=== PATIENT | female | born 1965 | race Caucasian/White ===

== ENCOUNTER 2020-09-14 09:56 | Outpatient (REF) | payer BC, SELFPAY ==
--- NOTE | ~2020-09-14 | MM_ITS ---
EXAMINATION: MM SCREENING DIGITAL BREAST TOMOSYNTHESIS, BILATERAL CLINICAL INFORMATION: Screening. Asymptomatic. The lifetime risk of breast cancer based on the Tyrer-Cuzick Model is 13%. COMPARISON: Mammography: 08/12/2019, 06/21/2018, 06/13/2017, 05/30/2016 TECHNIQUE: Digital breast tomosynthesis is performed in both the craniocaudal and mediolateral oblique views along with computer-aided detection (CAD). Synthesized 2D images are generated from the tomosynthesis. FINDINGS: There are scattered areas of fibroglandular density (ACR BI-RADS breast composition Category b). Right CC view has focal increased parenchymal attenuation with suggestion of possible radiating lines mid medial aspect 9 cm from nipple. There is no correlate on MLO view and this could represent summation artifact. Patient will be recalled for additional imaging. The left breast shows no significant change from prior studies. There is no developing density or interval mass or architectural abnormality. Fine fibronodular parenchymal pattern is similar to prior exams. Neither breast shows abnormal calcifications. Skin contours are smooth. MM/MM tomosynthesis screening BI IMPRESSION: 1. Right: Question of architectural changes mid inner right breast limited to CC view. 2. Left: No mammographic evidence of malignancy. ASSESSMENT: BI-RADS 0: Incomplete - Need Additional Imaging Evaluation RECOMMENDATION: 1. Additional views of the right breast (3D rolled CC x 2; 3D spot CC x2; 3D ML). 2. Targeted ultrasound if warranted after review of the additional views. 3. Radiology department staff will contact the patient for additional imaging. This patient's information was entered into a reminder system with a target due date for their next mammogram.
== END 2020-09-14 09:57 | disposition home or self-care (01) ==
LOC: HO.MAMMO 09:56
PROVIDERS: PCP Registered Nurse; Visit Provider Registered Nurse
DX: Z12.31 Encounter for screening mammogram for malignant neoplasm of breast (principal)
CPT/HCPCS: 77063; 77067

== ENCOUNTER 2020-09-27 08:28 | Outpatient (REF) | payer BC, SELFPAY ==
--- NOTE | ~2020-09-27 | MM_ITS ---
EXAMINATION: MM DIAGNOSTIC DIGITAL BREAST TOMOSYNTHESIS, RIGHT CLINICAL INFORMATION: Recall from screening for question of architectural changes mid inner right breast on CC view. TC score 13%. COMPARISON: Mammography: 09/14/2020, 08/12/2019, 06/21/2018, 06/13/2017, 05/30/2016 TECHNIQUE: Digital breast tomosynthesis is performed. 2D images are generated from the tomosynthesis. The following views are obtained: 3-D rolled CC x2, 3-D ML, 3-D spot CC. FINDINGS: There are scattered areas of fibroglandular density (ACR BI-RADS breast composition Category b). The additional views show no architectural abnormality. There is no developing density. Fibroglandular densities appears similar to prior exams. Results are discussed with the patient at time of visit. MM/MM tomosynthesis added views R IMPRESSION: Additional views show no significant changes from prior studies. No architectural abnormality. ASSESSMENT: BI-RADS 2: Benign RECOMMENDATION: Routine annual mammography screening. This patient's information was entered into a reminder system with a target due date for their next mammogram.
== END 2020-09-27 08:29 | disposition home or self-care (01) ==
LOC: HO.MAMMO 08:28
PROVIDERS: Visit Provider Registered Nurse
DX: R92.8 Other abnormal and inconclusive findings on diagnostic imaging of breast (principal)
CPT/HCPCS: 77061; 77065

== ENCOUNTER 2021-06-09 14:21 | Outpatient (REF) | payer BC, SELFPAY ==
--- NOTE | ~2021-06-09 | US_ITS ---
EXAMINATION: US RETROPERITONEAL LIMITED (RENAL ONLY) CLINICAL INFORMATION: Calculus of kidney. COMPARISON: CT abdomen and pelvis with contrast 09/17/2019. US retroperitoneal limited (renal only) 07/22/2019 and 12/16/2018. TECHNIQUE: Real-time imaging of the kidneys. FINDINGS: RIGHT KIDNEY: 12.0 x 4.58 x 4.60 cm (SAG x AP x TRV). The kidney is normal in size, contour, and echogenicity. Renal cortical thickness is normal. No calculi or focal parenchymal lesions. No hydronephrosis. LEFT KIDNEY: 13.0 x 4.61 x 5.15 cm (SAG x AP x TRV). The kidney is normal in size, contour, and echogenicity. Renal cortical thickness is normal. No calculi or focal parenchymal lesions. No hydronephrosis. US/US renal BI IMPRESSION: Unremarkable sonographic imaging of the kidneys. Specifically, no renal calculi or hydronephrosis bilaterally.
== END 2021-06-09 14:22 | disposition home or self-care (01) ==
LOC: HO.HMGCX 14:21
PROVIDERS: Visit Provider Urology
DX: N20.0 Calculus of kidney (principal)
CPT/HCPCS: 76775

== ENCOUNTER 2021-06-15 16:06 | Outpatient (REF) | payer BC, SELFPAY ==
[2021-06-18 16:17] LABS: TS Negative Control Passed; TS Panel A 0; TS Panel B 0; TS Positive Control Passed; TSpotTB Negative (SeeBelow)
== END 2021-06-15 16:07 | disposition home or self-care (01) ==
LOC: HO.LNP 16:06
PROVIDERS: Visit Provider Physician Assistant
DX: Z02.1 Encounter for pre-employment examination (principal); Z11.1 Encounter for screening for respiratory tuberculosis
CPT/HCPCS: 86481

== ENCOUNTER → 2021-06-16 15:32 | Outpatient (BNVA) | payer BC, SELFPAY | PROVIDERS: PCP Registered Nurse; Visit Provider Urology | DX: Z13.89 Encounter for screening for other disorder (principal) ==

== ENCOUNTER 2021-10-02 07:42 | Outpatient (REF) | payer BC, SELFPAY ==
--- NOTE | ~2021-10-02 | MM_ITS ---
EXAMINATION: MM SCREENING DIGITAL BREAST TOMOSYNTHESIS, BILATERAL CLINICAL INFORMATION: Screening. Asymptomatic. The lifetime risk of breast cancer based on the Tyrer-Cuzick Model is 12%. COMPARISON: Mammography: 09/27/2020, 09/14/2020, 08/12/2019, 06/21/2018 TECHNIQUE: Digital breast tomosynthesis is performed in both the craniocaudal and mediolateral oblique views along with computer-aided detection (CAD). Synthesized 2D images are generated from the tomosynthesis. FINDINGS: There are scattered areas of fibroglandular density (ACR BI-RADS breast composition Category b). There are no significant masses, abnormal calcifications, or other abnormalities. Parenchymal pattern is similar to prior studies. There is no developing density or architectural abnormality. The axilla and skin contours are unremarkable. No significant changes. MM/MM tomosynthesis screening BI IMPRESSION: No mammographic evidence of malignancy. ASSESSMENT: BI-RADS 1: Negative RECOMMENDATION: Routine annual mammography screening. This patient's information was entered into a reminder system with a target due date for their next mammogram.
== END 2021-10-02 07:43 | disposition home or self-care (01) ==
LOC: HO.MAMMO 07:42
PROVIDERS: Visit Provider Registered Nurse
DX: Z12.31 Encounter for screening mammogram for malignant neoplasm of breast (principal)
CPT/HCPCS: 77063; 77067

== ENCOUNTER 2022-11-09 08:23 | Outpatient (REF) | payer BC, SELFPAY | END 2022-11-09 08:24 | disposition home or self-care (01) | LOC: HO.MAMMO 08:23 | PROVIDERS: PCP Registered Nurse; Visit Provider Registered Nurse | DX: Z12.31 Encounter for screening mammogram for malignant neoplasm of breast (principal) | CPT/HCPCS: 77063; 77067 ==

== ENCOUNTER → 2022-11-09 08:30 | Outpatient (BNV) | payer BC, SELFPAY | PROVIDERS: PCP Registered Nurse; Visit Provider Radiology Diagnostic Radiology | DX: Z12.31 Encounter for screening mammogram for malignant neoplasm of breast (principal) | CPT/HCPCS: 77063; 77067 ==

== ENCOUNTER 2022-12-22 13:55 | Emergency (ER) | payer BC, SELFPAY ==
--- NOTE | ~2022-12-22 | XR_ITS ---
EXAMINATION: XR CHEST CLINICAL INFORMATION: Chest pain. COMPARISON: 02/24/2013. TECHNIQUE: 2 views of the chest were obtained. FINDINGS: The cardiomediastinal silhouette is normal. There is no focal lung consolidation or pleural effusion. The bony structures and soft tissues are unremarkable. XR/XR chest 2V IMPRESSION: No active cardiopulmonary disease.
--- NOTE | 2022-12-22 13:58 | ECG_ITS ---
Test Reason : CHEST PAIN Blood Pressure : / mmHG Vent. Rate : 069 BPM Atrial Rate : 069 BPM P-R Int : 132 ms QRS Dur : 098 ms QT Int : 410 ms P-R-T Axes : 007 -04 015 degrees QTc Int : 439 ms Normal sinus rhythm Moderate voltage criteria for LVH, may be normal variant ( R in aVL , [place] product ) Borderline ECG When compared with ECG of 24-FEB-2013 08:59, No significant change was found Referred By: Generic ED Physician Electronically Signed By:PETER JONES MD
--- NOTE | 2022-12-22 15:03 | ED.CHESTPAIN ---
HPI - Chest Pain General Chief Complaint: General Medical Stated Complaint: chest pain nausea dizzy Time Seen by Provider: 12/22/22 16:07 Related Data Home Medications Medication Instructions Recorded Confirmed doxepin 10 mg capsule 10 mg PO BEDTIME 06/16/21 estradiol 0.05 mg-norethindrone 0 patch transdermal 06/16/21 0.14 mg/24 hr semiwkly transderm patch (CombiPatch) levothyroxine 75 mcg tablet 75 mcg PO DAILY 06/16/21 (Synthroid) Previous Rx's Medication Instructions Recorded omeprazole 20 mg capsule,delayed 20 mg PO DAILY 90 days #90 caps 11/30/19 release levothyroxine 125 mcg tablet 62.5 mcg (1/2 x 125 mcg) PO DAILY 05/09/20 90 days #45 tabs Allergies Allergy/AdvReac Type Severity Reaction Status Date / Time No Known Allergies Allergy Verified 06/16/21 15:33 [No Known Allergies*] [facility] Past Medical History Medical History Calculus of kidney Surgical History History of laparoscopic cholecystectomy History of repair of rectocele Family History Family History Father Pacemaker Mother Unknown family medical history Maternal Grandfather CHF (congestive heart failure) CVD (cardiovascular disease) Maternal Grandmother CVD (cardiovascular disease) CHF (congestive heart failure) Brother No problems noted. Sister No problems noted. Son No problems noted. Son No problems noted. Son No problems noted. Social History Social History Smoked in Last 30 Days: No Use of substances other than those prescribed or required for medical reasons: No Advance Directives: No Advance Directives Information Provided: No Physical Exam Vital Signs: Vital Signs: Last Vital Signs Temp 98.1 F 12/22/22 16:52 Pulse 62 12/22/22 16:52 Resp 12 12/22/22 16:52 BP 161/85 H 12/22/22 16:52 Pulse Ox 99 12/22/22 16:52 O2 Del Method Room Air 12/22/22 16:52 BMI result Body Mass Index 34.6 Course Course Course Narrative: This is an RME: Additional HPI, ROS, PE not included below will be deferred to primary provider. Patient is a 57-year-old female who presents emergency department for evaluation of intermittent chest pain, left anterior radiating into the shoulder and upper back, dizziness described as being off balance, nausea without vomiting, fatigue, bilateral legs feel heavy. Endorses having COVID-19 infection 1 month ago, cough finally subsided 1 week ago. Plan: labs, EKG, CXR Medical Decision Making Lab Data 12/22/22 15:37 12/22/22 15:37 Labs: Lab Results 12/22/22 12/22/22 Range/Units 15:37 15:52 WBC 5.5 (4.8-10.8) X10*3/uL RBC 4.85 (4.20-5.50) X10*6/uL Hgb 14.2 (12.0-16.0) g/dl Hct 42.2 (37.0-47.0) % MCV 87.0 (80.0-98.0) fL MCH 29.3 (27.0-33.0) pg MCHC 33.6 (31.0-35.0) g/dl RDW 12.7 (11.0-16.0) % Plt Count 163 (160-400) X10*3/uL MPV 11.5 (9.4-12.3) fL Immature Gran % (Auto) 0.2 (0.0-0.4) % Neut % (Auto) 69.2 (45-73) % Lymph % (Auto) 18.4 L (20-40) % Bledsoe % (Auto) 9.6 (2-11) % Eos % (Auto) 2.1 (0-4) % Baso % (Auto) 0.5 (0-2) % Lymph # (Auto) 1.0 L (1.2-4.9) X10*3/uL Bledsoe # (Auto) 0.5 (0.1-1.2) X10*3/uL Eos # (Auto) 0.1 (0.0-0.4) X10*3/uL Baso # (Auto) 0.0 (0.0-0.2) X10*3/uL Abs Immat Gran (auto) 0.01 (0.00-0.03) X10*3/uL Absolute Neuts (auto) 3.9 (2.0-8.3) x10*3/uL Absolute Nucleated RBC 0.000 (0.0-0.012) X10*3/uL Nucleated RBC % (auto) 0.0 (0.0-0.2) /100WBC Smear Tech's Comments VERIFIED PT 10.8 L (11.1-13.3) SEC INR 0.9 (0.9-1.1) Sodium 139 (135-145) mmol/L Potassium 4.5 (3.3-5.1) mmol/L Chloride 108 (96-108) mmol/L Carbon Dioxide 21 L (22-29) mmol/L Anion Gap 15 (12-20) BUN 15 (9-16) mg/dL Creatinine 0.76 (0.5-1.4) mg/dL Estim Creat Clear Calc 104.6 Estimated GFR > 60 Random Glucose 100 (60-115) mg/dL Calcium 9.8 (8.4-10.2) mg/dL Magnesium 2.2 (1.6-2.6) mg/dL Total Bilirubin 0.5 (0.0-1.0) mg/dL AST 25 (5-31) U/L ALT 24 (0-31) U/L Alkaline Phosphatase 51 (39-117) U/L Troponin I High Sens < 2.7 (<3.5-17.0) ng/L Total Protein 7.8 (6.5-8.0) g/dL Albumin 4.4 (3.5-5.0) g/dL Lipase 34 (8-78) U/L Urine Color Yellow Urine Appearance Clear Urine pH 5.5 (5.0-9.0) Ur Specific [place] 1.010 (1.005-1.025) Urine Protein Negative (Neg-Trace) mg/dL Urine Glucose (UA) Negative (Negative) mg/dL Urine Ketones Negative (Negative) mg/dL Urine Blood Negative (Negative) Urine Nitrite Negative (Negative) Ur Leukocyte Esterase Negative (Negative) Urine RBC 0-2 (0-2) /HPF Urine WBC 0-5 (0-5) /HPF Ur Squamous Epith Cells 0-2 (0-2) /HPF Urine Bacteria Trace (None Seen) Hyaline Casts 0-2 (0-2) /LPF Urine Test NEGATIVE (NEGATIVE) Discharge Plan Discharge Prescriptions: No Action omeprazole 20 mg capsule,delayed release(DR/EC) 20 mg PO DAILY 90 Days Qty: 90 3RF levothyroxine 125 mcg tablet 62.5 mcg PO DAILY 90 Days Qty: 45 3RF doxepin 10 mg capsule 10 mg PO BEDTIME levothyroxine [Synthroid] 75 mcg tablet 75 mcg PO DAILY CombiPatch 0.05-0.14 mg/24 hr patch semiweekly 0 patch transdermal
[2022-12-22 15:04] VITALS: BP 177/93; PULSE 65; RESP 16; TEMP 36.3; O2SAT 98; BMI 34.6
[2022-12-22 15:45] LABS: Basophils Percent Auto 0.5 % (0-2); Eosinophils Absolute Auto 0.1 X10*3/uL (0.0-0.4); Eosinophils Percent Auto 2.1 % (0-4); Hematocrit 42.2 % (37.0-47.0); Hemoglobin 14.2 g/dl (12.0-16.0); Imm Gran Abs Auto 0.01 X10*3/uL (0.00-0.03); Imm Gran Pct Auto 0.2 % (0.0-0.4); Lymphocytes Percent Auto 18.4 % (20-40); MANUAL DIFF FLAG SCAN; Mean Corpuscular HGB Conc 33.6 g/dl (31.0-35.0); Mean Corpuscular Hemoglobin 29.3 pg (27.0-33.0); Mean Platelet Volume 11.5 fL (9.4-12.3); Monocytes Absolute Auto 0.5 X10*3/uL (0.1-1.2); Monocytes Percent Auto 9.6 % (2-11); Neutrophils Absolute Auto 3.9 x10*3/uL (2.0-8.3); Neutrophils Percent Auto 69.2 % (45-73); PLT CLUMP 1; Red Blood Count 4.85 X10*6/uL (4.20-5.50); Red Cell Distribution Width 12.7 % (11.0-16.0); SCAN SMEAR FLAG 1
[2022-12-22 15:49] LABS: White Blood Count 5.5 X10*3/uL (4.8-10.8)
[2022-12-22 15:52] LABS: INTERNATIONAL NORM RATIO 0.9 (0.9-1.1); Prothrombin Time 10.8 SEC (11.1-13.3)
--- OUTSIDE RECORDS SUMMARY | 2022-12-22 15:54 | XMS_ITS | Continuity of Care Document ---
Author Name Unknown Organization [facility] Address [address] [place] [address] [address], [address] [place] [address]- Care Team Providers Care County Historian Name Role Phone Sanchez RICHTER, Genet Frias Primary Care Physician [facility] Date[facility]s): 01/29/22 - 02/28/22 [facility] [address] [place] [address] Drive, [address] [place], [place] [address] Allergies, Adverse Reactions, Alerts Substance Reaction Severity Status lisinopril severe chest pain, nausea, diarrhea Active Immunizations Given and Recorded Vaccine Date Status Refusal Reason influenza virus vaccine, inactivated 1, 2 12/09/14 Recorded influenza virus vaccine, inactivated 3 12/14/13 Gi ileana influenza virus vaccine, inactivated 4 11/26/11 Gi ileana influenza virus vaccine, inactivated 12/19/07 Give n diphtheria/tetanus/pertussis, acel(DTaP) 08/25/13 Given Influenza Virus Vaccine (oldterm) 5 12/06/10 Given Influenza Virus Vaccine (oldterm) 6 01/28/07 Given Tet/Diphth/Acel, Pertussis (oldterm) 04/16/08 Give n tetanus-diphtheria toxoids (Td) 7 12/04/01 Given 1Location History: work 2Result Comment: [03/01/2015] got flu shot at work, [facility] 3Result Comment: [01/13/2014] Received at work 4Admin Note: [employer] [facility] [place] 5Admin Note: had at school 6Admin Note: given in clinic 7Admin Note: historical data Medications Calcium 600 +D By Mouth, 0 Refills, Maintenance, 11/02/14 9:39:18 Start Date: 11/02/14 Status: Ordered cloNIDine 0.1 mg oral tablet 0.1 mg, 1, tablet, By Mouth, Daily, ~noon to replace propranolol, # 30 tablet, Refills 1, Tot. Refills 1, Maintenance, 01/25/22 11:39:00 EST, Route to Pharmacy Electronically, [facility], Partial fill upon patient request if the prescr... Start Date: 01/25/22 Status: Ordered levothyroxine 0.05 mg oral tablet 1 tablet = 50 mcg, By Mouth, Daily, # 90 tablet, 3 Refills, Maintenance, 07/09/14 9:59:29, Tablet, 1 tablet By Mouth Daily,x90 days Start Date: 07/09/14 Stop Date: 07/04/15 Status: Ordered Multivitamin By Mouth, Daily, 0 Refills, Maintenance, 11/02/14 9:38:25 Start Date: 11/02/14 Status: Ordered Prilosec 20 mg oral enteric coated capsule 1 capsule, By Mouth, Daily, # 30 capsule, 0 Refills, Maintenance, EC Capsule Start Date: 12/16/10 Status: Ordered propranolol 20 mg oral tablet 20 mg, 1, tablet, By Mouth, 2 times a day, # 60 tablet, Refills 1, Tot. Refills 1, Maintenance, 02/28/22 20:19:00 EST, Route to Pharmacy Electronically, [facility], Partial fill uponpatient request if the prescription is for a schedule I... Start Date: 02/28/22 Status: Ordered Problem List Condition Confirmation Course Effective Dates Status H ealth Status Informant Anxiety Confirmed Active Cystocele Confirmed Active Blood pressure elevated Confirmed Active Rectocele Confirmed Active Gastro-esophageal reflux Confirmed Active Hypothyroidism Confirmed Active Insomnia Confirmed Active Menopausal and postmenopausal disorders Confirmed Active Obese class II Confirmed Active Obstructive sleep apnea 1 Confirmed Active 1on cpap Social History Social History Type Response Smoking Status Former smoker entered on: 06/29/14 Sex Patient Care team information Care Team Personnel Name: Genet Bradford NP Position: [facility] Outreach Member Role: PCP Address: Address: [address] [place] [address]- Name: Rasheed Hoang MD Position: [facility] Cardiology MD Member Role: Lifetime Consulting Physician Address: Address: [address] [place] [address] [place] [address]- Care Team Related Persons Name: MELODY RUSSELL Address: home [address] [place] [address] Name: BLAKE RUSSELL Address: home [address] [place] [address]
--- OUTSIDE RECORDS SUMMARY | 2022-12-22 15:54 | XMS_ITS | Continuity of Care Document ---
Author Name Unknown Organization [facility] Address [address] [place] [address]- Care Team Providers Care Hog Raiser Name Role Phone Sanchez RICHTER, Genet Frias Primary Care Physician [facility]s): 03/28/22 - 04/27/22 [facility] [address] [place], [place] [address] Allergies, Adverse Reactions, Alerts No Known Allergies Immunizations Given and Recorded Vaccine Date Status [...] Comment: [03/01/2015] got flu shot at work, [employer] 3Result Comment: [01/13/2014] Received at work 4Admin Note: [employer] [facility] [place] employer 5Admin Note: had at school 6Admin Note: given in clinic 7Admin Note: historical data Medications amitriptyline 10 mg oral tablet 10 mg, 1, tablet, By Mouth, Daily at bedtime, # 30 tablet, Refills 1, Tot. Refills 1, Maintenance, 04/05/22 9:20:00 EST, Route to Pharmacy Electronically, [facility], Partial fill upon patient request if the prescription is for a schedule... Start Date: 04/05/22 Status: Ordered Calcium 600 +D By Mouth, 0 Refills, [...] Date: 07/09/14 Stop Date: 07/04/15 Status: Ordered lisinopril 2.5 mg oral tablet 2.5 mg, 1, tablet, By Mouth, Daily, # 30 tablet, Refills 1, Tot. Refills 1, Maintenance, 03/08/22 10:50:00 EST, Route to Pharmacy Electronically, [facility], Partial fill upon patient request if the prescription is for a schedule II opioi... Start Date: 03/08/22 Status: Ordered magnesium oxide 400 mg oral tablet 1 tablet = 400 mg, By Mouth, 2 times a day, to replace magnesium gluconate, # 60 tablet, 1 Refills,Maintenance, 03/14/22 13:17:00 EST, Tablet, [facility], Partial fill upon patient request if the prescription is for a schedule II opioid... Start Date: 03/14/22 Status: Ordered Multivitamin By Mouth, Daily, 0 [...] Active Menopausal and postmenopausal disorders Confirmed Active Obstructive sleep apnea 1 Confirmed Active Severe obesity (BMI 35.0-39.9) with comorbidity Confirmed Active 1on cpap Social History Social History Type Response Smoking Status Former smoker entered on: 06/29/14 Sex Female Patient Care team information Care Team Personnel Name: Sanchez RICHTER, Genet Frias Position: [facility] Outreach Member Role: PCP Address: Address: [address] [place] [id number]- Name: Rasheed Hoang MD Position: [facility] Cardiology MD Member Role: Lifetime Consulting Physician Address: Address: [address] [place] [address] [place] [address]- Care Team Related Persons Name: MELODY RUSSELL Address: home [address] [place] [address] Name: BLAKE RUSSELL Address: [address] [place] [address]
--- OUTSIDE RECORDS SUMMARY | 2022-12-22 15:54 | XMS_ITS | Continuity of Care Document ---
Author Name Unknown Organization [facility] Address [address] [place] [address] [address]iaz[address] king, [address] [place] [address]- Care Team Providers Care Conservation Biology Professor Name Role Phone Sanchez RICHTER, Genet Frias Primary Care Physician [facility]counter [facility] Date(s): 03/19/22 - 04/18/22 [facility] [address] [place] [address] Drive, [address] [place], [place] [address] Allergies, Adverse Reactions, Alerts No Known Allergies [...] Comment: [03/01/2015] got flu shot at work, [facility] 3Result Comment: [01/13/2014] Received at work 4Admin Note: [employer] [facility] [place] employer 5Admin Note: [...] Personnel Name: Sanchez RICHTER, Genet Frias Position: [facility] Outreach Member Role: PCP Address: Address: [address] [place] [id number]- Name: Natalya HUNTLEY, Rasheed Edmond Position: [facility] Cardiology MD Member Role: Lifetime Consulting Physician Address: Address: [address] [place] [address] [place] [address]- Care Team Related Persons Name: MELODY RUSSELL Address: home [address] [place] [address] Name: BLAKE RUSSELL Address: [address] [place] [address]
--- OUTSIDE RECORDS SUMMARY | 2022-12-22 15:54 | XMS_ITS | Continuity of Care Document ---
Author Name Unknown Organization [facility] Address [address] [place] [address]- Care Team Providers Care Facilities Project Manager Name Role Phone Sanchez RICHTER, Genet Frias Primary Care Physician Encounter [facility] Date(s): 03/08/22 - 03/15/22 [facility] [address] [place] [address]- Encounter Diagnosis Concussion(Discharge Diagnosis) - 03/08/22 Autonomic instability(Discharge Diagnosis) - 03/08/22 Attending Physician: Beto Brown MD Allergies, Adverse Reactions, Alerts No Known Allergies [...] Comment: [03/01/2015] got flu shot at work, [facility] [facility] 3Result Comment: [01/13/2014] Received at work 4Admin Note: [facility] [employer] [facility] [place] employer 5Admin Note: had at school 6Admin [...] 35.0-39.9) with comorbidity Confirmed Active 1on cpap Diagnosis Diagnosis Type Effective Dates Health Status Clinical Service Informant Concussion Discharge Diagnosis 03/08/22 Autonomic instability Discharge Diagnosis 03/08/22 Vital Signs Most recent to oldest [Reference Range]: 1 Height 175 cm (03/08/22 10:12 AM) Weight 118.3 kg (03/08/22 10:12 AM) Oxygen Saturation [94-100 %] 96 % (03/08/22 10:12 AM) Pulse Rate [55-90 bpm] 61 bpm (03/08/22 10:12 AM) Body Mass Index [18.5-24.99 kg/m2] 38.63 kg/m2 *>HHI* (03/08/22 10:12 AM) Blood Pressure [90-138/55-84 mm Hg] 155/ 84mm Hg *H* (03/08/22 10:12 AM) Mode of Delivery (Oxygen) Room air (03/08/22 10:12 AM) Blood pressure sites Arm, left (03/08/22 10:12 AM) Social History Social History Type Response Smoking Status Former smoker entered on: 06/29/14 Sex Patient Care team information Care Team Personnel Name: Sanchez RICHTER, Genet Frias Position: [facility] Outreach Member Role: PCP Address: Address: [address] [place] [phone]- Name: Rasheed Hoang MD Position: [facility] Cardiology MD Member Role: Lifetime Consulting Physician Address: Address: [address] [place] [address] [place] [address]- Care Team Related Persons Name: MELODY RUSSELL Address: home [address] [place] [address] Name: BLAKE RUSSELL Address: [address] [place] [address]
--- OUTSIDE RECORDS SUMMARY | 2022-12-22 15:54 | XMS_ITS | Continuity of Care Document ---
Author Name Unknown Organization [facility] Address [address] [address]- Care Team Providers Care Ground Crew Chief Name Role Phone Sanchez RICHTER, Genet Frias Primary Care Physician [facility]): 01/26/22 - 03/31/22 [facility] [address] [place] [id number]- Attending Physician: Beto Brown MD Referring Physician: Sanchez RICHTER, Genet Frias Allergies, Adverse Reactions, Alerts No Known Allergies [...] Comment: [03/01/2015] got flu shot at work, [employer] [employer] 3Result Comment: [01/13/2014] Received at work 4Admin Note: [employer] [facility] [place] employer 5Admin Note: had at school 6Admin [...] Personnel Name: Sanchez RICHTER, Genet Frias Position: [facility] Outreach Member Role: PCP Address: Address: [address] [place] [id number]- Name: Natalya HUNTLEY, Rasheed Edmond Position: [facility] Cardiology MD Member Role: Lifetime Consulting Physician Address: Address: [address] [place] [address] [place] [address]- Care Team Related Persons Name: MELODY RUSSELL Address: home [address] [place] [address] Name: BLAKE RUSSELL Address: home [address] [place] [address]
--- OUTSIDE RECORDS SUMMARY | 2022-12-22 15:54 | XMS_ITS | Continuity of Care Document ---
Author Name Unknown Organization [facility] Address [address] [place] [address]- Care Team Providers Care X Ray Examiner Of Aircraft Name Role Phone Grupo HUNTLEY, Carmella Kim Primary Care Physician [facility] Date[facility]s): [facility]23/19 - 09/22/19 [facility] [address] [place] [address]- [facility] Attending Physician: Jordan Solomon Admitting Physician: Jordan Solomon Referring Physician: AdmtrJordan Allergies, Adverse Reactions, Alerts Substance Reaction Severity [...] Comment: [03/01/2015] got flu shot at work, [facility] 3Result Comment: [01/13/2014] Received at work 4Admin Note: [facility] employer 5Admin Note: had at school 6Admin Note: given in clinic 7Admin Note: historical data Medications Calcium 600 +D By Mouth, 0 Refills, Maintenance, 11/02/14 9:39:18 Start Date: 11/02/14 Status: Ordered Colace sodium 100 mg oral capsule 1 capsule = 100 mg, By Mouth, 2 times a day, PRN for constipation, # 30 capsule, 0 Refills, Maintenance, 09/27/14 12:04:27, Capsule Start Date: 09/27/14 Status: Ordered Fish Oil By Mouth, 0 Refills, Maintenance, 11/02/14 9:39:28 Start Date: 11/02/14 Status: Ordered Flonase 50 mcg/inh nasal spray 1 sprays, Nares, Both, 2 times a day, # 16 Gm, 0 Refills, Maintenance, 04/18/15 18:05:59, [place], 1 sprays Nares, Both 2 times a day Start Date: 04/18/15 Status: Ordered levothyroxine 0.05 mg oral tablet [...] EC Capsule Start Date: 12/16/10 Status: Ordered Probiotic Formula 1 capsule, By Mouth, Daily, 0 Refills, Maintenance, 11/02/14 9:40:02 Start Date: 11/02/14 Status: Ordered Problem List Condition Effective Dates Status Health Status Inform ant Anxiety(Confirmed) Active Cystocele(Confirmed) Active Blood pressure elevated(Confirmed) Active Rectocele(Confirmed) Active Gastro-esophageal reflux(Confirmed) Active Insomnia(Confirmed) Active Menopausal and postmenopausa l disorders(Confirmed) Active Social History Social History Type Response Smoking Status Former smoker entered on: 06/29/14 Sex
--- OUTSIDE RECORDS SUMMARY | 2022-12-22 15:54 | XMS_ITS | Continuity of Care Document ---
Author Name Unknown Organization [facility] Address [address] [place] [address] [address], [address] [place] [address]- Care Team Providers Care Loftsman Name Role Phone Sanchez RICHTER, Genet Frias Primary Care Physician [facility] Date(s): 01/26/22 - 02/25/22 [facility] [address] [place] [address] Drive, [address] [place], [place] [address] Allergies, Adverse Reactions, Alerts Substance Reaction [...] Comment: [03/01/2015] got flu shot at work, [facility] 3Result Comment: [01/13/2014] Received at work 4Admin Note: [facility] employer 5Admin Note: had at school 6Admin [...] EC Capsule Start Date: 12/16/10 Status: Ordered Problem List Condition Confirmation Course [...] Personnel Name: Sanchez RICHTER, Genet Frias Position: [facility] Outreach Member Role: PCP Address: Address: [address] [place] [address]- Name: Rasheed Hoang MD Position: [facility] Cardiology MD Member Role: Lifetime Consulting Physician Address: Address: [address] [place] [address] & [facility] [place] [address]- Care Team Related Persons Name: MELODY RUSSELL Address: home [address] [place] [address] Name: BLAKE RUSSELL Address: home [address] [place] [address]
--- OUTSIDE RECORDS SUMMARY | 2022-12-22 15:54 | XMS_ITS | Continuity of Care Document ---
Author Name Unknown Organization [facility] Address [address] [place] [address]- Care Team Providers Care Laundry Housekeeper Name Role Phone Sanchez RICHTER, Genet Frias Primary Care Physician Encounter [facility] Date(s): 05/03/22 - 05/10/22 [facility] [address] [place] [address]- Encounter Diagnosis Concussion(Discharge Diagnosis) - 05/03/22 Attending Physician: Stephanie HUNTLEY, Beto Beltran Allergies, Adverse Reactions, Alerts No Known Allergies [...] Comment: [03/01/2015] got flu shot at work, [facility] 3Result Comment: [01/13/2014] Received at work 4Admin Note: [facility] employer 5Admin Note: had at school 6Admin Note: given in clinic 7Admin Note: historical data Medications Calcium 600 +D By Mouth, 0 Refills, Maintenance, 11/02/14 9:39:18 Start Date: 11/02/14 Status: Ordered levothyroxine 0.05 mg oral tablet [...] Diagnosis Diagnosis Type Effective Dates Health Status Clini bev Service Informant Concussion Discharge Diagnosis 05/03/22 Vital Signs Most recent to oldest [Reference Range]: 1 Height 175 cm (05/03/22 10:59 AM) Weight 116.2 kg (05/03/22 10:59 AM) Oxygen Saturation [94-100 %] 96 % (05/03/22 10:59 AM) Pulse Rate [55-90 bpm] 83 bpm (05/03/22 10:59 AM) Body Mass Index [18.5-24.99 kg/m2] 37.94 kg/m2 *>HHI* (05/03/22 10:59 AM) Blood Pressure [90-138/55-84 mm Hg] 124/ 83mm Hg (05/03/22 10:59 AM) Blood pressure sites Arm, left (05/03/22 10:59 AM) Weight Obtained Via Bed scale (05/03/22 10:59 AM) Social History Social History Type Response Smoking Status Former smoker entered on: 06/29/14 Sex Female Patient Care team information Care Team Personnel Name: Genet Bradford NP Position: [facility] Outreach Member Role: PCP Address: Address: [address] [place] [address] Name: Rasheed Hoang MD Position: [facility] Cardiology MD Member Role: Lifetime Consulting Physician Address: Address: [address] [place] [address] [place] [address]- Care Team Related Persons Name: MELODY RUSSELL Address: home [address] [place] [address] Name: BLAKE RUSSELL Address: home [address] [place] [address]
--- OUTSIDE RECORDS SUMMARY | 2022-12-22 15:54 | XMS_ITS | Continuity of Care Document ---
Author Name Unknown Organization [facility] Address [address] [place] [address]- Care Team Providers Care Logistics Center Manager Name Role Phone Sanchez RICHTER, Genet Frias Primary Care Physician Encounter [facility] Date(s): 05/08/22 - 06/07/22 [facility]/[address] [address]- [place] Allergies, Adverse Reactions, Alerts No Known Allergies [...] Comment: [03/01/2015] got flu shot at work, [facility] 3Result Comment: [01/13/2014] Received at work 4Admin Note: [employer] employer 5Admin Note: had at school 6Admin Note: given in clinic 7Admin Note: historical data Medications Calcium 600 +D By Mouth, 0 Refills, Maintenance, 11/02/14 9:39:18 Start Date: 11/02/14 Status: Ordered levothyroxine 0.05 mg oral tablet 1 tablet = 50 mcg, By Mouth, Daily, # 90 tablet, 3 Refills, Maintenance, 05/15/15 9:59:29, Tablet, 1 tablet By Mouth Daily,x90 days Start Date: 07/09/14 Stop Date: 07/04/15 Status: Ordered Multivitamin By Mouth, Daily, 0 Refills, Maintenance, 11/02/14 9:38:25 Start Date: 11/02/14 Status: Ordered Prilosec 20 mg oral enteric coated capsule 1 capsule, By Mouth, Daily, # 30 capsule, 0 Refills, Maintenance, EC Capsule Start Date: 12/16/10 Status: Ordered topiramate 25 mg oral tablet 1 tablet = 25 mg, By Mouth, Daily at bedtime, to replace amitriptyline, # 30 tablet, 1 Refills, Maintenance, 05/11/22 16:51:00 EDT, [facility], Partial fill upon patient request if the prescription is for a schedule II opioid drug., 175,... Start Date: 05/11/22 Status: Ordered Problem List Condition Confirmation Course [...] Personnel Name: Sanchez RICHTER, Genet Frias Position: [facility] Outreach Member Role: PCP Address: Address: [address] [place] [address]- Name: Rasheed Hoang MD Position: [facility] Cardiology MD Member Role: Lifetime Consulting Physician Address: Address: [address] [place] [address] [place] [address]- Care Team Related Persons Name: MELODY RUSSELL Address: home [address] [place] [address] Name: BLAKE RUSSELL Address: home [address] [place] [address]
--- OUTSIDE RECORDS SUMMARY | 2022-12-22 15:55 | XMS_ITS | Continuity of Care Document ---
Author Name Unknown Organization [facility] Address [address] [place], [place] [address]maksim king, [address] [place] [address]- Care Team Providers Care Wood Milling Machine Tender Name Role Phone Sanchez RICHTER, Genet Frias Primary Care Physician [place] [facility] [place] 05/07/22 - 06/06/22 [facility] [address] [place] [address] Drive, [address] [place], [place] [address] Allergies, Adverse Reactions, Alerts No Known Allergies [...] Comment: [03/01/2015] got flu shot at work, [facility] 3Result Comment: [01/13/2014] Received at work 4Admin Note: [employer] [facility] employer 5Admin Note: had at school 6Admin [...] Personnel Name: Sanchez RICHTER, Genet Frias Position: [facility] Outreach Member Role: PCP Address: Address: [address] [place] [address]- Name: Natalya HUNTLEY, Rasheed Edmond Position: [facility] Cardiology MD Member Role: Lifetime Consulting Physician Address: Address: [address] [place] [address] [place] [address]- Care Team Related Persons Name: MELODY RUSSELL Address: home [address] [place] [address] Name: BLAKE RUSSELL Address: home [address] [place] [address]
--- OUTSIDE RECORDS SUMMARY | 2022-12-22 15:55 | XMS_ITS | Continuity of Care Document ---
Author Name Unknown Organization [facility] Address [address] [place] [address]- Care Team Providers Care Breastfeeding Peer Counselor Name Role Phone Sanchez RICHTER, Genet Frias Primary Care Physician [facility] Date[facility]s): 03/19/22 - 04/18/22 [facility]/[address] [address]- [place] Allergies, Adverse Reactions, Alerts No Known [...] Comment: [03/01/2015] got flu shot at work, [facility] 3Result Comment: [01/13/2014] Received at work 4Admin Note: [facility] employer 5Admin Note: had at school 6Admin [...] Personnel Name: Sanchez RICHTER, Genet Frias Position: [facility] Outreach Member Role: PCP Address: Address: [address] [place] [address]- Name: Natalya HUNTLEY, Rasheed Edmond Position: [facility] Cardiology MD Member Role: Lifetime Consulting Physician Address: Address: [address] [place] [address] [place] [address]- Care Team Related Persons Name: MELODY RUSSELL Address: home [address] [place] [address] Name: BLAKE RUSSELL Address: home [address] [place] [address]
--- OUTSIDE RECORDS SUMMARY | 2022-12-22 15:55 | XMS_ITS | Continuity of Care Document ---
Author Name Unknown Organization [facility] Address [address] [place] [address] christine, [address] [place] [address]- Care Team Providers Care Rubberizing Mechanic Name Role Phone Sanchez RICHTER, Genet Frias Primary Care Physician Encounter [facility] Date(s): 04/13/22 - 05/13/22 [facility] [address] [place] [address] Drive, [address] [place], [place] [address] Allergies, Adverse Reactions, Alerts No Known [...] Comment: [03/01/2015] got flu shot at work, [facility] 3Result Comment: [01/13/2014] Received at work 4Admin Note: [facility] employer 5Admin Note: had [...] Personnel Name: Sanchez RICHTER, Genet Frias Position: [facility] Outreach Member Role: PCP Address: Address: [address] [place] [address]- Name: Natalya HUNTLEY, Rasheed Edmond Position: [facility] Cardiology MD Member Role: Lifetime Consulting Physician Address: Address: [address] [place] [address] [place] [address]- Care Team Related Persons Name: MELODY RUSSELL Address: home [address] [place] [address] Name: BLAKE RUSSELL Address: home [address] [place] [address]
--- OUTSIDE RECORDS SUMMARY | 2022-12-22 15:55 | XMS_ITS | Continuity of Care Document ---
Author Name Unknown Organization [facility] Address [address] [facility] [address] [place] [address]- Care Team Providers Care Senior Sas Developer Name Role Phone Sanchez RICHTER, Genet Frias Primary Care Physician [facility] Date(s): 03/19/22 - 04/18/22 [facility] [address] [place] [address]- Allergies, Adverse Reactions, Alerts No Known Allergies [...] Comment: [03/01/2015] got flu shot at work, [facility] 3Result Comment: [01/13/2014] Received at work 4Admin Note: [facility] employer 5Admin Note: had at school 6Admin [...] Personnel Name: Sanchez RICHTER, Genet Frias Position: [facility] Outreach Member Role: PCP Address: Address: [address] [place] [address]- Name: Natalya HUNTLEY, Rasheed Edmond Position: [facility] Cardiology MD Member Role: Lifetime Consulting Physician Address: Address: [address] [place] [address] [place] [address]- Care Team Related Persons Name: MELODY RUSSELL Address: home [address] [place] [address] Name: BLAKE RUSSELL Address: home [address] [place] [address]
--- OUTSIDE RECORDS SUMMARY | 2022-12-22 15:55 | XMS_ITS | Continuity of Care Document ---
Author Name Unknown Organization [facility] Address [address] [place] [address]- Care Team Providers Care Scrap Handler Name Role Phone Sanchez RICHTER, Genet Frias Primary Care Physician Encounter [facility] Date(s): 06/18/22 - 07/18/22 [facility] [address] [place] [address]- Allergies, Adverse Reactions, Alerts No Known Allergies [...] [03/01/2015] got flu shot at work, [facility] 3Result Comment: [01/13/2014] Received at work 4Admin Note: [facility] employer 5Admin Note: had at school 6Admin [...] Personnel Name: Sanchez RICHTER, Genet Frias Position: S Outreach Member Role: PCP Address: Address: [address] [place] [address]- Care Team Related Persons Name: MELODY RUSSELL Address: home [address] [place] [address] Name: BLAKE RUSSELL Address: home [address] [place] [address]
--- OUTSIDE RECORDS SUMMARY | 2022-12-22 15:55 | XMS_ITS | Continuity of Care Document ---
Author Name Unknown Organization [facility] Address [address] [place] [address] Eliazar king, [address] [place] [address]- Care Team Providers Care Solar System Designer Name Role Phone Sanchez RICHTER, Genet Frias Primary Care Physician [facility] Date[facility]s): 03/14/22 - 04/13/22 [facility] [address] [place] [address] Drive, [address] [place], [place] [address] Allergies, Adverse Reactions, Alerts No [...] Comment: [03/01/2015] got flu shot at work, [facility] 3Result Comment: [01/13/2014] Received at work [...] Personnel Name: Sanchez RICHTER, Genet Frias Position: [facility] Outreach Member Role: PCP Address: Address: [address] [place] [address]- Name: Natalya HUNTLEY, Rasheed Edmond Position: [facility] Cardiology MD Member Role: Lifetime Consulting Physician Address: Address: [address] [place] [address] [place] [address]- Care Team Related Persons Name: MELODY RUSSELL Address: home [address] [place] [address] Name: BLAKE RUSSELL Address: home [address] [place] [address]
--- OUTSIDE RECORDS SUMMARY | 2022-12-22 15:55 | XMS_ITS | Continuity of Care Document ---
Author Name Unknown Organization [facility] Address [address] [place] [address]- Care Team Providers Care Cellar Worker Name Role Phone Sanchez RICHTER, Genet Frias Primary Care Physician Encounter [place] Date(s): 05/11/22 - 06/10/22 [facility]/[address] [address] [place] Allergies, Adverse Reactions, Alerts No Known [...] Comment: [03/01/2015] got flu shot at work, [facility] 3Result Comment: [01/13/2014] Received at work 4Admin Note: [facility] employer 5Admin Note: had at school 6Admin [...] Personnel Name: Sanchez RICHTER, Genet Frias Position: [facility] Outreach Member Role: PCP Address: Address: [address] [place] [address]- Name: Rasheed Hoang MD Position: [facility] Cardiology MD Member Role: Lifetime Consulting Physician Address: Address: [address] [place] [address] [place] [address]- Care Team Related Persons Name: MELODY RUSSELL Address: home [address] [place] [address] Name: BLAKE RUSSELL Address: home [address] [place] [address]
--- OUTSIDE RECORDS SUMMARY | 2022-12-22 15:55 | XMS_ITS | Continuity of Care Document ---
Author Name Unknown Organization [facility] Address [address] [place] [address]- Care Team Providers Care Sales Ambassador Name Role Phone Sanchez RICHTER, Genet Frias Primary Care Physician Encounter [facility] Date(s): 06/28/22 - 07/28/22 [facility] [address] [place] [address]- Allergies, Adverse Reactions, Alerts No Known Allergies [...] Comment: [03/01/2015] got flu shot at work, [facility] 3Result Comment: [01/13/2014] Received at work 4Admin Note: [facility] employer 5Admin Note: [...] EC Capsule Start Date: 12/16/10 Status: Ordered SUMAtriptan 50 mg oral tablet 1 tablet = 50 mg, By Mouth, Daily, PRN for migraine headache, may repeat dose after 2 hours up to amaximum of 2, # 9 tablet, 1 Refills, Acute 09/18/22 13:30:00 EDT, 07/19/22 13:25:00 EDT, Tablet, [facility], Partial fill upon patient req... Start Date: 07/19/22 Stop Date: 09/18/22 Status: Ordered Problem List Condition Confirmation Course [...] Personnel Name: Sanchez RICHTER, Genet Frias Position: [facility] Outreach Member Role: PCP Address: Address: [address] [place] [address]- Care Team Related Persons Name: MELODY RUSSELL Address: home [address] [place] [address] Name: BLAKE RUSSELL Address: home [address] [place] [address]
--- OUTSIDE RECORDS SUMMARY | 2022-12-22 15:55 | XMS_ITS | Continuity of Care Document ---
Author Name Unknown Organization [facility] Address [address] [place] [address]- Care Team Providers Care Flight Attendant/Inflight Supervisor Name Role Phone Sanchez RICHTER, Genet Frias Primary Care Physician [place] [facility] [place] 01/26/22 - 03/03/[address] [address]- Encounter Diagnosis Procedure and treatment not carried out for other reasons(Final) - Discharge Disposition: A-D/C Home Attending Physician: Sanchez RICHTER, Genet Frias Admitting Physician: Sanchez RICHTER, Genet Frias Referring Physician: Sanchez RICHTER, Genet Frias Allergies, Adverse Reactions, Alerts Substance Reaction Severity [...] at work, [facility] 3Result Comment: [01/13/2014] Received at work 4Admin Note: [employer] [facility] employer 5Admin Note: had at school 6Admin [...] Personnel Name: Sanchez RICHTER, Genet Frias Position: [facility] Outreach Member Role: PCP Address: Address: [address] [place] [address]- Name: Natalya HUNTLEY, Rasheed Edmond Position: [facility] Cardiology MD Member Role: Lifetime Consulting Physician Address: Address: [address] [place] [address] [place] [address]- Care Team Related Persons Name: MELODY RUSSELL Address: home [address] [place] [address] Name: RUSSELL BLAKE Address: home [address] [place] [address]
--- OUTSIDE RECORDS SUMMARY | 2022-12-22 15:55 | XMS_ITS | Continuity of Care Document ---
Author Name Unknown Organization [facility] Address [address] [facility] [address] [place] [address]- Care Team Providers Care Transformation Manager Name Role Phone Sanchez RICHTER, Genet Frias Primary Care Physician [facility] Date(s): 02/27/22 - 03/29/22 [facility] [address] [place] [address]- Allergies, Adverse Reactions, Alerts No Known Allergies [...] got flu shot at work, [facility] 3Result Comment: [01/13/2014] Received at work 4Admin Note: [facility] employer 5Admin Note: had [...] Personnel Name: Sanchez RICHTER, Genet Frias Position: [facility] Outreach Member Role: PCP Address: Address: [address] [place] [address]- Name: Natalya HUNTLEY, Rasheed Edmond Position: [facility] Cardiology MD Member Role: Lifetime Consulting Physician Address: Address: [address] [place] [address] [place] [address]- Care Team Related Persons Name: MELODY RUSSELL Address: home [address] [place] [address] Name: BLAKE RUSSELL Address: home [address] [place] [address]
--- OUTSIDE RECORDS SUMMARY | 2022-12-22 15:55 | XMS_ITS | Continuity of Care Document ---
Author Name Unknown Organization [facility] Address [address] [facility] [address] [place] [address]- Care Team Providers Care Timber Deadener Name Role Phone Sanchez RICHTER, Genet Frias Primary Care Physician [facility] Date(s): 03/14/22 - 04/13/22 [facility] [address] [place] [address]- Allergies, Adverse Reactions, Alerts No Known Allergies [...] Comment: [03/01/2015] got flu shot at work, [facility] 3Result Comment: [01/13/2014] Received at work 4Admin Note: [employer] employer 5Admin Note: had at [...] Personnel Name: Sanchez RICHTER, Genet Frias Position: [facility] Outreach Member Role: PCP Address: Address: [address] [place] [address]- Name: Natalya HUNTLEY, Rasheed Edmond Position: [facility] Cardiology MD Member Role: Lifetime Consulting Physician Address: Address: [address] [place] [address] [place] [address]- Care Team Related Persons Name: MELODY RUSSELL Address: home [address] [place] [address] Name: BLAKE RUSSELL Address: home [address] [place] [address]
--- OUTSIDE RECORDS SUMMARY | 2022-12-22 15:55 | XMS_ITS | Continuity of Care Document ---
Author Name Unknown Organization [facility] Address [address] [place] [address] Eliazar king, [address] [place] [address]- Care Team Providers Care Event Marketing Specialist Name Role Phone Sanchez RICHTER, Genet Frias Primary Care Physician [facility] 02/27/22 - 03/29/22 [facility] [address] [place] [address] Drive, [address] [place], [place] [address] Allergies, Adverse Reactions, Alerts No Known [...] Comment: [03/01/2015] got flu shot at work, [facility] 3Result Comment: [01/13/2014] Received at work 4Admin Note: [employer] [facility] employer 5Admin Note: had at school 6Admin [...] HOSPITAL Outreach Member Role: PCP Address: Address: [address] [place] [address]- [place] Name: Natalya HUNTLEY, Rasheed Edmond Position: [facility] Cardiology MD Member Role: Lifetime Consulting Physician Address: Address: [address] [place] [address] [place] [address]- Care Team Related Persons Name: MELODY RUSSELL Address: home [address] [place] [address] Name: BLAKE RUSSELL Address: home [address] [place] [address]
--- OUTSIDE RECORDS SUMMARY | 2022-12-22 15:55 | XMS_ITS | Continuity of Care Document ---
Author Name Unknown Organization [facility]icine and Rehabilitation Address [address] [facility] [address] [place] [address]- Care Team Providers Care Car Stereo Installer Name Role Phone Sanchez RICHTER, Genet Frias Primary Care Physician [facility] Date(s): 12/21/21 - 01/20/22 [facility] [address] [place] [address]- Allergies, Adverse Reactions, Alerts Substance Reaction Severity [...] Comment: [03/01/2015] got flu shot at work, [facility] 3Result Comment: [01/13/2014] Received at work 4Admin Note: [facility] employer 5Admin Note: [...] tablet, Refills 1, Tot. Refills 1, Maintenance, 01/04/22 9:57:00 EST, Route to Pharmacy Electronically, [facility], Partial fill upon patient request if the prescription is for a schedule II... Start Date: 01/04/22 Status: Ordered Problem List Condition Confirmation Course [...] Sanchez RICHTER, Genet Frias Position: [facility] Outreach Member Role: PCP Address: Address: [address] [place] [address]- Name: Rasheed Hoang MD Position: [facility] Cardiology MD Member Role: Lifetime Consulting Physician Address: Address: [address] [place] [address] [place] [address]- Care Team Related Persons Name: MELODY RUSSELL Address: home [address] [place] [address] Name: BLAKE RUSSELL Address: home [address] [place] [address]
--- OUTSIDE RECORDS SUMMARY | 2022-12-22 15:55 | XMS_ITS | Continuity of Care Document ---
Author Name Unknown Organization [facility] Physical [facility] dicine and Rehabilitation Address 21 [facility] [address] [place] [address]- Care Team Providers Care Park Aide Name Role Phone Sanchez RICHTER, Genet Frias Primary Care Physician [facility] Date(s): 03/08/22 - 04/07/22 [facility] Rehabilitation [address] [place] [address]- Allergies, Adverse Reactions, Alerts No Known Allergies [...] got flu shot at work, [facility] 3Result Comment: [01/13/2014] Received at work 4Admin Note: [employer] [facility] employer 5Admin Note: had at school 6Admin [...] Personnel Name: Sanchez RICHTER, Genet Frias Position: [facility] Outreach Member Role: PCP Address: Address: [address] [place] [address]- Name: Natalya HUNTLEY, Rasheed Edmond Position: [facility] Cardiology MD Member Role: Lifetime Consulting Physician Address: Address: [address] [place] [address] [place] [address]- Care Team Related Persons Name: MELODY RUSSELL Address: home [address] [place] [address] Name: BLKAE RUSSELL Address: home [address] [place] [address]
--- OUTSIDE RECORDS SUMMARY | 2022-12-22 15:55 | XMS_ITS | Continuity of Care Document ---
Author Name Unknown Organization [facility] Address [address] [place] [address]- Care Team Providers Care Computer Science Teacher Name Role Phone Sanchez RICHTER, Genet Frias Primary Care Physician [facility]s): 04/18/22 - 05/18/[address] [address] Attending Physician: Jordan Solomon Admitting Physician: AdmtrJordan Referring Physician: Admtr, Ar8 Allergies, Adverse Reactions, Alerts No Known Allergies [...] Comment: [01/13/2014] Received at work 4Admin Note: [employer] [employer] [facility] employer 5Admin Note: had at school 6Admin [...] Team Personnel Name: Genet Bradford NP Position: [facility] Outreach Member Role: PCP Address: Address: [address] [place] [address]- [place] Name: Rasheed Hoang MD Position: [facility] Cardiology MD Member Role: Lifetime Consulting Physician Address: Address: [address] [place] [address] [place] [address]- Care Team Related Persons Name: MELODY RUSSELL Address: home [address] [place] [address] Name: BLAKE RUSSELL Address: home [address] [place] [address]
--- OUTSIDE RECORDS SUMMARY | 2022-12-22 15:55 | XMS_ITS | Continuity of Care Document ---
Author Name Unknown Organization [facility] Physical Me dicine and Rehabilitation Address [address] [place] [address]- Care Team Providers Care Hot Braider Name Role Phone Sanchez RICHTER, Genet Frias Primary Care Physician Encounter [facility] [place] [place] Date(s): 06/21/22 - 07/21/22 [facility] Physical Medicine and Rehabilitation [address] [place] [address]- Allergies, Adverse Reactions, Alerts No Known Allergies [...] got flu shot at work, [facility] 3Result Comment: [01/13/2014] Received at work 4Admin Note: [facility] employer 5Admin Note: had at school 6Admin [...] Outreach Member Role: PCP Address: Address: [address] [place] [address]- Care Team Related Persons Name: MELODY RUSSELL Address: home [address] [place] [address] Name: BLAKE RUSSELL Address: home [address] [place] [address]
--- OUTSIDE RECORDS SUMMARY | 2022-12-22 15:55 | XMS_ITS | Continuity of Care Document ---
Author Name Unknown Organization [facility] Physical Me dicine and Rehabilitation Address [address] [place] [address]- Care Team Providers Care President And Cmo Name Role Phone Sanchez RICHTER, Genet Frias Primary Care Physician Encounter [facility] Date(s): 06/18/22 - 07/18/22 [facility] Physical Medicine and Rehabilitation [address] [place] [address]- Allergies, Adverse Reactions, Alerts No Known Allergies [...] Comment: [03/01/2015] got flu shot at work, [facility] 3Result Comment: [01/13/2014] Received at work 4Admin Note: [facility] [employer] [facility] employer 5Admin Note: had at school 6Admin [...] Outreach Member Role: PCP Address: Address: [address] [place] [address]- Care Team Related Persons Name: MELODY RUSSELL Address: home [address] [place] [address] Name: BLAKE RUSSELL Address: home [address] [place] [address]
--- OUTSIDE RECORDS SUMMARY | 2022-12-22 15:55 | XMS_ITS | Continuity of Care Document ---
Author Name Unknown Organization [facility] Address [address] [place] [address] [address] king, [address] [place] [address]- Care Team Providers Care Solar Panel Installer Name Role Phone Sanchez RICHTER, Genet Frias Primary Care Physician [facility]s): 03/02/22 - 04/01/22 [facility]surgery [address] [place] [address] Drive, [address] [place], [place] [address] Allergies, Adverse Reactions, Alerts No [...] got flu shot at work, [facility] 3Result Comment: [01/13/2014] Received at work 4Admin Note: [employer] [facility] employer 5Admin Note: had at school 6Admin [...] Care team information Care Team Personnel Name: Sanchze RICHTER, Genet Frias Position: [facility] Outreach Member Role: PCP Address: Address: [address] [place] [address]- [place] Name: Natalya HUNTLEY, Rasheed Edmond Position: [facility] Cardiology MD Member Role: Lifetime Consulting Physician Address: Address: [address] [place] [address] [place] [address]- Care Team Related Persons Name: MELODY RUSSELL Address: home [address] [place] [address] Name: BLAKE RUSSELL Address: home [address] [place] [address]
--- OUTSIDE RECORDS SUMMARY | 2022-12-22 15:55 | XMS_ITS | Continuity of Care Document ---
Author Name Unknown Organization [facility] Physical Me dicine and Rehabilitation Address [address] [place] [address]- Care Team Providers Care Inspecting Machine Adjuster Name Role Phone Sanchez RICHTER, Genet Frias Primary Care Physician [place] [facility] [place] Date(s): 07/19/22 - 08/18/22 [facility] Physical Medicine and Rehabilitation [address] [place] [address]- Attending Physician: Jordan Solomon Admitting Physician: AdmtrJordan Referring Physician: Admtr, Jordan Allergies, Adverse Reactions, Alerts No Known Allergies [...] Comment: [03/01/2015] got flu shot at work, [facility] 3Result Comment: [01/13/2014] Received at work 4Admin Note: [facility] employer 5Admin Note: had at [...] Outreach Member Role: PCP Address: Address: [address] [place] [address]- Care Team Related Persons Name: MELODY RUSSELL Address: home [address] [place] [address] Name: BLAKE RUSSELL Address: home [address] [place] [address]
--- OUTSIDE RECORDS SUMMARY | 2022-12-22 15:55 | XMS_ITS | Continuity of Care Document ---
Author Name Unknown Organization [facility] Physical Ar dicine and Rehabilitation Address [address] [facility] [address] [place] [address]- Care Team Providers Care Cardiology Physician Assistant Name Role Phone Sanchez RICHTER, Genet Frias Primary Care Physician [facility]s): 03/08/22 - 04/07/22 [facility] Physical Medicine and Rehabilitation [address] [place] [address]- Allergies, Adverse Reactions, Alerts No Known Allergies [...] at work 4Admin Note: [employer] [facility] employer 5Admin Note: had at school 6Admin [...] Personnel Name: Sanchez RICHTER, Genet Frias Position: [facility] Outreach Member Role: PCP Address: Address: [address] [place] [address]- Name: Natalya HUNTLEY, Rasheed Edmond Position: [facility] Cardiology MD Member Role: Lifetime Consulting Physician Address: Address: [address] [place] [address] [place] [address]- Care Team Related Persons Name: MELODY RUSSELL Address: home [address] [place] [address] Name: BLAKE RUSSELL Address: home [address] [place] [address]
--- OUTSIDE RECORDS SUMMARY | 2022-12-22 15:55 | XMS_ITS | Continuity of Care Document ---
Author Name Unknown Organization [facility] Address [address] [place] [address]- Care Team Providers Care Medication Coordinator Name Role Phone Sanchez RICHTER, Genet Frias Primary Care Physician [place] [facility] 02/27/22 - 06/17/[address] [address]- Encounter Diagnosis Other peripheral vertigo, unspecified ear(Final) - Discharge Disposition: A-D/C Home Attending Physician: [...] Comment: [03/01/2015] got flu shot at work, [facility] 3Result Comment: [01/13/2014] Received [...] Personnel Name: Sanchez RICHTER, Genet Frias Position: [facility] Outreach Member Role: PCP Address: Address: [address] [place] [address]- [place] Name: Rasheed Hoang MD Position: [facility] Cardiology MD Member Role: Lifetime Consulting Physician Address: Address: [address] [place] [address] [place] [address]- Care Team Related Persons Name: MELODY RUSSELL Address: home [address] [place] [address] Name: BLAKE RUSSELL Address: home [address] [place] [address]
--- OUTSIDE RECORDS SUMMARY | 2022-12-22 15:56 | XMS_ITS | Continuity of Care Document ---
Author Name Unknown Organization [facility] Physical Me dicine and Rehabilitation Address [address] [place] [address]- Care Team Providers Care Welfare Administrator Name Role Phone Sanchez RICHTER, Genet Frias Primary Care Physician Encounter [facility] Date(s): 06/14/22 - 06/21/22 [facility] Physical Medicine and Rehabilitation [address] [place] [address]- Encounter Diagnosis Concussion(Discharge Diagnosis) - 06/14/22 Attending Physician: Beto Brown MD Allergies, Adverse [...] Comment: [03/01/2015] got flu shot at work, [facility] 3Result Comment: [01/13/2014] Received at work 4Admin Note: [facility] employer 5Admin Note: had at [...] Clini bev Service Informant Concussion Discharge Diagnosis 06/14/22 Vital Signs Most recent to oldest [Reference Range]: 1 Height 175 cm (06/14/22 2:36 PM) Weight 117.4 kg (06/14/22 2:36 PM) Oxygen Saturation [94-100 %] 98 % (06/14/22 2:36 PM) Pulse Rate [55-90 bpm] 70 bpm (06/14/22 2:36 PM) Body Mass Index [18.5-24.99 kg/m2] 38.33 kg/m2 *>HHI* (06/14/22 2:36 PM) Blood Pressure [90-138/55-84 mm Hg] 131/ 87mm Hg (06/14/22 2:36 PM) Blood pressure sites Arm, left (06/14/22 2:36 PM) Weight Obtained Via Bed scale (06/14/22 2:36 PM) Social History Social History Type Response Smoking Status Former smoker entered on: 06/29/14 Sex Female Patient Care team information Care Team Personnel Name: Sanchez RICHTER, Genet Frias Position: [facility] Outreach Member Role: PCP Address: Address: [address] [place] [address]- Care Team Related Persons Name: MELODY RUSSELL Address: home [address] [place] [address] Name: BLAKE RUSSELL Address: home [address] [place] [address]
--- OUTSIDE RECORDS SUMMARY | 2022-12-22 15:56 | XMS_ITS | Continuity of Care Document ---
Author Name Unknown Organization [facility] Physical Ne dicine and Rehabilitation Address [address] [place] [address]- Care Team Providers Care Outboard Motor Assembler Name Role Phone Sanchez RICHTER, Genet Frias Primary Care Physician [place] [facility]/04[place]22 - 01/11/22 [facility] Physical Medicine and Rehabilitation [address] [place] [address]- Encounter Diagnosis Concussion(Discharge Diagnosis) - 01/04/22 Attending Physician: Stephanie HUNTLEY, Beto Beltran Referring Physician: Sanchez RICHTER, Genet Frias Allergies, [...] got flu shot at work, [facility] 3Result Comment: [01/13/2014] Received at [...] sleep apnea 1 Confirmed Active 1on cpap Diagnosis Diagnosis Type Effective Dates Health Status Clini bev Service Informant Concussion Discharge Diagnosis 01/04/22 Procedures Procedure Date Related Diagnosis Body Site Status Cystocele 1 Completed 1and rectocele repair ~2016 Vital Signs Most recent to oldest [Reference Range]: 1 2 Height 175 cm (01/04/22 12:48 PM) 175 cm (01/04/22 8:55 AM) Weight 112.9 kg (01/04/22 8:55 AM) Oxygen Saturation [94-100 %] 98 % (01/04/22 8:55 AM) Pulse Rate [55-90 bpm] 79 bpm (01/04/22 8:55 AM) Body Mass Index [18.5-24.99 kg/m2] 36.87 kg/m2 *>HHI* (01/04/22 8:55 AM) Blood Pressure [90-138/55-84 mm Hg] 138/ 80mm Hg (01/04/22 12:48 PM) 165/91mm Hg *H* (01/04/22 8:55 AM) Blood pressure sites Arm, left (01/04/22 8:55 AM) Weight Obtained Via Bed scale (01/04/22 8:55 AM) Social History Social History Type Response Smoking Status Former smoker entered on: 06/29/14 Sex Patient Care team information Care Team Personnel Name: Sanchez RICHTER, Genet Frias Position: [facility] Outreach Member Role: PCP Address: Address: [address] [place] [address]- [place] Name: Natalya HUNTLEY, Rasheed Edmond Position: [facility] Cardiology MD Member Role: Lifetime Consulting Physician Address: Address: [address] [place] [address] [place] [address]- Care Team Related Persons Name: MELODY RUSSELL Address: home [address] [place] [address] Name: BLAKE RUSSELL Address: home [address] [place] [address]
--- OUTSIDE RECORDS SUMMARY | 2022-12-22 15:56 | XMS_ITS | Continuity of Care Document ---
Author Name Unknown Organization [facility] Address [address] [place] [address] Eliazar king, [address] [place] [address]- Care Team Providers Care Leather Staker Name Role Phone Sanchez RICHTER, Genet Frias Primary Care Physician [facility]s): 03/02/22 - 04/01/22 [facility] [address] [place] [address] Drive, [address] [place], [place] [address] Allergies, Adverse Reactions, Alerts No Known Allergies [...] Comment: [03/01/2015] got flu shot at work, [facility] 3Result Comment: [01/13/2014] Received at work [...] Personnel Name: Sanchez RICHTER, Genet Frias Position: [facility] Outreach Member Role: PCP Address: Address: [address] [place] [address]- [place] Name: Natalya HUNTLEY, Rasheed Edmond Position: [facility] Cardiology MD Member Role: Lifetime Consulting Physician Address: Address: [address] [place] [address] [place] [address]- Care Team Related Persons Name: MELODY RUSSELL Address: home [address] [place] [address] Name: BLAKE RUSSELL Address: home [address] [place] [address]
--- OUTSIDE RECORDS SUMMARY | 2022-12-22 15:56 | XMS_ITS | Continuity of Care Document ---
Author Name Unknown Organization [facility] Address [address] [place] [address]- Care Team Providers Care Defense Travel Administrator Name Role Phone Sanchez RICHTER, Genet Frias Primary Care Physician [facility]s): 03/14/22 - 04/13/22 [facility] [address] [place], [place] [address] Allergies, Adverse Reactions, Alerts No Known Allergies [...] Personnel Name: Sanchez RICHTER, Genet Frias Position: [facility] Outreach Member Role: PCP Address: Address: [address] [place] [address]- Name: Natalya HUNTLEY, Rasheed Edmond Position: [facility] Cardiology MD Member Role: Lifetime Consulting Physician Address: Address: [address] [place] [address] [place] [address]- Care Team Related Persons Name: MELODY RUSSELL Address: home [address] [place] [address] Name: BLAKE RUSSELL Address: home [address] [place] [address]
--- OUTSIDE RECORDS SUMMARY | 2022-12-22 15:56 | XMS_ITS | Continuity of Care Document ---
Author Name Unknown Organization [facility] Physical Ca dicine and Rehabilitation Address [address] [place] [address]- Care Team Providers Care Franchise Specialist Name Role Phone Sanchez RICHTER, Genet Frias Primary Care Physician Encounter [facility] Date(s): 01/25/22 - 02/01/22 [facility] Physical Medicine and Rehabilitation [address] [place] [address]- Encounter Diagnosis Concussion(Discharge Diagnosis) - 01/25/22 Autonomic dysfunction(Discharge Diagnosis) - 01/25/22 Attending Physician: Beto Brown MD Referring Physician: [...] Comment: [03/01/2015] got flu shot at work, [facility] 3Result Comment: [01/13/2014] Received at work 4Admin Note: [facility] [place] 5Admin Note: had at school 6Admin [...] Status Clinical Service Informant Concussion Discharge Diagnosis 01/25/22 Autonomic dysfunction Discharge Diagnosis 01/25/22 Vital Signs Most recent to oldest [Reference Range]: 1 Height 175 cm (01/25/22 11:05 AM) Weight 114.5 kg (01/25/22 11:05 AM) Oxygen Saturation [94-100 %] 96 % (01/25/22 11:05 AM) Pulse Rate [55-90 bpm] 60 bpm (01/25/22 11:05 AM) Body Mass Index [18.5-24.99 kg/m2] 37.39 kg/m2 *>HHI* (01/25/22 11:05 AM) Blood Pressure [90-138/55-84 mm Hg] 101/ 56mm Hg (01/25/22 11:05 AM) Blood pressure sites Arm, left (01/25/22 11:05 AM) Weight Obtained Via Bed scale (01/25/22 11:05 AM) Social History Social History Type Response Smoking Status Former smoker entered on: 06/29/14 Sex Patient Care team information Care Team Personnel Name: Sanchez RICHTER, Genet Frias Position: [facility] Outreach Member Role: PCP Address: Address: [address] [place] [address]- [place] Name: Natalya HUNTLEY, Rasheed Edmond Position: [facility] Cardiology MD Member Role: Lifetime Consulting Physician Address: Address: [address] [place] [address] [place] [address]- Care Team Related Persons Name: MELODY RUSSELL Address: home [address] [place] [address] Name: BLAKE RUSSELL Address: [address] [place] [address]
--- OUTSIDE RECORDS SUMMARY | 2022-12-22 15:56 | XMS_ITS | Continuity of Care Document ---
Author Name Unknown Organization [facility] Address [address] [place] [address] Eliazar king, [address] [place] [address]- Care Team Providers Care Farmworker Bulbs Name Role Phone Sanchez RICHTER, Genet Frias Primary Care Physician [facility] Date[facility]s): 03/05/22 - 04/04/22 [facility] [address] [place] [address] Drive, [address] [place], [place] [address] Allergies, Adverse Reactions, Alerts No Known Allergies [...] Comment: [03/01/2015] got flu shot at work, [facility] 3Result Comment: [01/13/2014] Received at work 4Admin Note: [facility] employer 5Admin Note: had at school 6Admin [...] Personnel Name: Sanchez RICHTER, Genet Frias Position: [facility] Outreach Member Role: PCP Address: Address: [address] [place] [address]- [place] Name: Natalya HUNTLEY, Rasheed Edmond Position: [facility] Cardiology MD Member Role: Lifetime Consulting Physician Address: Address: [address] [place] [address] [place] [address]- Care Team Related Persons Name: MELODY RUSSELL Address: home [address] [place] [address] Name: BLAKE RUSSELL Address: home [address] [place] [address]
--- OUTSIDE RECORDS SUMMARY | 2022-12-22 15:56 | XMS_ITS | Continuity of Care Document ---
Author Name Unknown Organization [facility] Address [address] [place] [address]- Care Team Providers Care Cell Efficiency Supervisor Name Role Phone Sanchez RICHTER, Genet Frias Primary Care Physician Encounter [facility] Date(s): 04/05/22 - 04/12/22 [facility] [address] [place] [address]- Encounter Diagnosis Concussion(Discharge Diagnosis) - 04/05/22 Autonomic dysfunction(Discharge Diagnosis) - 04/05/22 Attending Physician: Beto Brown MD Referring Physician: [...] Comment: [03/01/2015] got flu shot at work, [facility] 3Result Comment: [01/13/2014] Received at [...] Status Clinical Service Informant Concussion Discharge Diagnosis 04/05/22 Autonomic dysfunction Discharge Diagnosis 04/05/22 Vital Signs Most recent to oldest [Reference Range]: 1 Height 175 cm (04/05/22 8:45 AM) Weight 117 kg (04/05/22 8:45 AM) Oxygen Saturation [94-100 %] 98 % (04/05/22 8:45 AM) Pulse Rate [55-90 bpm] 65 bpm (04/05/22 8:45 AM) Body Mass Index [18.5-24.99 kg/m2] 38.2 kg/m2 *>HHI* (04/05/22 8:45 AM) Blood Pressure [90-138/55-84 mm Hg] 138/ 86mm Hg (04/05/22 8:45 AM) Mode of Delivery (Oxygen) Room air (04/05/22 8:45 AM) Blood pressure sites Arm, left (04/05/22 8:45 AM) Social History Social History Type Response Smoking Status Former smoker entered on: 06/29/14 Sex Female Patient Care team information Care Team Personnel Name: Sanchez RICHTER, Genet Frias Position: [facility] Outreach Member Role: PCP Address: Address: [address] [place] [address]- Name: Natalya HUNTLEY, Rasheed Edmond Position: [facility] Cardiology MD Member Role: Lifetime Consulting Physician Address: Address: [address] [place] [address] [place] [address]- Care Team Related Persons Name: MEOLDY RUSSELL Address: home [address] [place] [address] Name: BLAKE RUSSELL Address: home [address] [place] [address]
--- OUTSIDE RECORDS SUMMARY | 2022-12-22 15:56 | XMS_ITS | Continuity of Care Document ---
Author Name Unknown Organization [facility] Address [address] [place] [address]- Care Team Providers Care Rfid Developer Name Role Phone Sanchez RICHTER, Genet Frias Primary Care Physician Encounter [facility] Date(s): 06/18/22 - 07/18/22 [facility] [address] [place] [address]- Allergies, Adverse Reactions, Alerts No Known Allergies [...] Comment: [03/01/2015] got flu shot at work, [facility] 3Result Comment: [01/13/2014] Received at work 4Admin Note: [employer] [facility] [place] employer 5Admin Note: had at school 6Admin [...] Outreach Member Role: PCP Address: Address: [address] [place] [address]- Care Team Related Persons Name: MELODY RUSSELL Address: home [address] [place] [address] Name: BLAKE RUSSELL Address: home [address] [place] [address]
--- OUTSIDE RECORDS SUMMARY | 2022-12-22 15:56 | XMS_ITS | Continuity of Care Document ---
Author Name Unknown Organization [facility] Address [address] [place], [place] [address]mak[address] king, [address] [place] [address]- Care Team Providers Care Transitions Manager Name Role Phone Sanchez RICHTER, Genet Frias Primary Care Physician Encounter [facility] Date(s): 01/19/22 - 02/18/22 [facility] [address] [place] [address] Drive, [address] [place], [place] [address] Allergies, Adverse Reactions, Alerts [...] got flu shot at work, [facility] 3Result Comment: [01/13/2014] Received at work 4Admin Note: [facility] [employer] [facility] [place] 5Admin Note: had at [...] Personnel Name: Sanchez RICHTER, Genet Frias Position: [facility] Outreach Member Role: PCP Address: Address: [address] [place] [address]- Name: Rasheed Hoang MD Position: [facility] Cardiology MD Member Role: Lifetime Consulting Physician Address: Address: [address] [place] [address] [place] [address]- Care Team Related Persons Name: MELODY RUSSELL Address: home [address] [place] [address] Name: BLAKE RUSSELL Address: home [address] [place] [address]
--- OUTSIDE RECORDS SUMMARY | 2022-12-22 15:56 | XMS_ITS | Continuity of Care Document ---
Author Name Unknown Organization [facility] Address [address] [place] [address]- Care Team Providers Care Combination Presser Name Role Phone Grupo HUNTLEY, Carmella Kim Primary Care Physician Encounter [facility] Date(s): 08/23/19 - 08/30/19 [facility] [address] [place] [address]- [place] Encounter Diagnosis Nose irritation(Discharge Diagnosis) - 08/23/19 Attending Physician: Yung Torres Referring Physician: Not on Staff, Referring MD Allergies, Adverse Reactions, Alerts Substance Reaction Severity [...] Comment: [03/01/2015] got flu shot at work, [facility] 3Result Comment: [01/13/2014] Received at work 4Admin Note: [employer] [facility] [facility] [place] employer 5Admin Note: had at school 6Admin [...] 16 Gm, 0 Refills, Maintenance, 04/18/15 18:05:59, [place], 1 sprays Nares, Both 2 times a [...] Active Menopausal and postmenopausa l disorders(Confirmed) Active Diagnosis Diagnosis Type Effective Dates Health Status Cl inical Service Informant Nose irritation Discharge Diagnosis 08/23/19 Vital Signs Most recent to oldest [Reference Range]: 1 Height 175.26 cm (08/23/19 12:34 PM) Oxygen Saturation [94-100 %] 100 % (08/23/19 12:34 PM) Pulse Rate [55-90 bpm] 66 bpm (08/23/19 12:34 PM) Blood Pressure [90-138/55-84 mm Hg] 149/ 81mm Hg *H* (08/23/19 12:34 PM) Respiratory Rate [16-30 br/min] 25 br/mi n (08/23/19 12:34 PM) Temperature [96.8-100.4 DegF] 98.2 DegF (08/23/19 12:34 PM) Mode of Delivery (Oxygen) Room air (08/23/19 12:34 PM) Blood pressure sites Arm, right (08/23/19 12:34 PM) Temperature Route Temporal (08/23/19 12:34 PM) Dry Weight 111.181 kg (08/23/19 12:34 PM) Weight Obtained Via Standing scale (08/23/19 12:34 PM) Social History Social History Type Response Smoking Status Former smoker entered on: 06/29/14 Sex
--- OUTSIDE RECORDS SUMMARY | 2022-12-22 15:56 | XMS_ITS | Continuity of Care Document ---
Author Name Unknown Organization [facility] Address [address] [place] [address]- Care Team Providers Care Nib Assembler Name Role Phone Sanchez RICHTER, Genet Frias Primary Care Physician Encounter [facility] Date(s): 07/19/22 - 07/26/22 [facility] [address] [place] [address]- Encounter Diagnosis Concussion(Discharge Diagnosis) - 07/19/22 Attending Physician: Beto Brown MD Referring Physician: [...] Comment: [01/13/2014] Received at work 4Admin Note: [employer] [facility] [place] 5Admin Note: had at [...] Clini bev Service Informant Concussion Discharge Diagnosis 07/19/22 Vital Signs Most recent to oldest [Reference Range]: 1 Height 175 cm (07/19/22 1:02 PM) Weight 113.6 kg (07/19/22 1:02 PM) Oxygen Saturation [94-100 %] 98 % (07/19/22 1:02 PM) Pulse Rate [55-90 bpm] 71 bpm (07/19/22 1:02 PM) Body Mass Index [18.5-24.99 kg/m2] 37.09 kg/m2 *>HHI* (07/19/22 1:02 PM) Blood Pressure [90-138/55-84 mm Hg] 140/ 93mm Hg *H* (07/19/22 1:02 PM) Blood pressure sites Arm, left (07/19/22 1:02 PM) Weight Obtained Via Bed scale (07/19/22 1:02 PM) Social History Social History Type Response Smoking Status Former smoker entered on: 06/29/14 Sex Female Patient Care team information Care Team Personnel Name: Sanchez RICHTER, Genet Frias Position: [facility] Outreach Member Role: PCP Address: Address: [address] [place] [address]- Care Team Related Persons Name: MELODY RUSSELL Address: home [address] [place] [address] Name: BLAKE RUSSELL Address: [address] [place] [address]
--- OUTSIDE RECORDS SUMMARY | 2022-12-22 15:56 | XMS_ITS | Continuity of Care Document ---
Author Name Unknown Organization [facility] Address [address] [place] [address]- Care Team Providers Care Breaker Up Machine Operator Name Role Phone Sanchez RICHTER, Genet Frias Primary Care Physician Encounter [facility] Date(s): 01/04/22 - 02/09/[address] [address] Attending Physician: Beto Brown MD Admitting Physician: Beto Brown MD Referring Physician: Beto Brown MD Allergies, Adverse Reactions, Alerts Substance Reaction [...] Comment: [03/01/2015] got flu shot at work, [facility] 3Result Comment: [01/13/2014] Received at work 4Admin Note: [facility] [employer] [facility] [place] employer 5Admin Note: had at school 6Admin [...] Outreach Member Role: PCP Address: Address: [address] [place] [address]- [place] Name: Natalya HUNTLEY, Rasheed Edmond Position: [facility] Cardiology MD Member Role: Lifetime Consulting Physician Address: Address: [address] [place] [address] [place] [address]- Care Team Related Persons Name: MELODY RUSSELL Address: home [address] [place] [address] Name: BLAKE RUSSELL Address: home [address] [place] [address]
--- OUTSIDE RECORDS SUMMARY | 2022-12-22 15:56 | XMS_ITS | Continuity of Care Document ---
Author Name Unknown Organization [facility] Address [address] [place] [address]- Care Team Providers Care Blog Writer Name Role Phone Sanchez RICHTER, Genet Frias Primary Care Physician Encounter [facility] Date(s): 12/18/21 - 12/18/[address] [address]- Encounter Diagnosis Concussion without loss of consciousness(Final) - 12/18/21 Discharge Disposition: A-D/C Home Attending Physician: Shital Harris MD Admitting Physician: Shital Harris MD Referring Physician: Not on Staff, Referring MD [...] Comment: [03/01/2015] got flu shot at work, [facility] 3Result Comment: [01/13/2014] Received at work 4Admin Note: [facility] employer 5Admin Note: had at school 6Admin [...] 16 Gm, 0 Refills, Maintenance, 04/18/15 18:05:59, [place], 1 sprays Nares, Both 2 times a [...] Date: 11/02/14 Status: Ordered Problem List Condition Confirmation Course Effective Dates Status H ealt Status Informant Anxiety Confirmed Active Cystocele Confirmed Active Blood pressure elevated Confirmed Active Rectocele Confirmed Active Gastro-esophageal reflux Confirmed Active Insomnia Confirmed Active Menopausal and postmenopausal disorders Confirmed Active Obese class II Confirmed Active Vital Signs Most recent to oldest [Reference Range]: 1 2 Height 175 cm (12/18/21 6:29 PM) 175 cm (12/18/21 5:32 PM) Weight 109 kg (12/18/21 6:29 PM) 109 kg (12/18/21 5:32 PM) Oxygen Saturation [94-100 %] 98 % (12/18/21 5:32 PM) 98 % (12/18/21 5:07 PM) Pulse Rate [55-90 bpm] 69 bpm (12/18/21 5:32 PM) 65 bpm (12/18/21 5:07 PM) Body Mass Index [18.5-24.99 kg/m2] 35.59 kg/m2 *>HHI* (12/18/21 5:32 PM) Blood Pressure [90-138/55-84 mm Hg] 159/ 90mm Hg *H* (12/18/21 5:32 PM) Respiratory Rate [16-30 br/min] 18 br/mi n (12/18/21 5:32 PM) Temperature [96.8-100.4 DegF] 98.2 DegF (12/18/21 5:32 PM) Mode of Delivery (Oxygen) Room air (12/18/21 5:32 PM) Room air (12/18/21 5:07 PM) Blood pressure sites Arm, right (12/18/21 5:32 PM) Temperature Route Oral (12/18/21 5:32 PM) Dry Weight 109 kg (12/18/21 6:29 PM) 109 kg (12/18/21 5:32 PM) Weight Obtained Via Standing scale (12/18/21 5:32 PM) Dry Weight Obtained Via Standing scale (12/18/21 5:32 PM) Social History Social History Type Response Smoking Status Former smoker entered on: 06/29/14 Sex Patient Care team information Personnel Name: Genet Bradford NP Address: Address: [address] [place] [address]
--- OUTSIDE RECORDS SUMMARY | 2022-12-22 15:56 | XMS_ITS | Continuity of Care Document ---
Author Name Unknown Organization [facility] Address [address] [place] [address] [address], [address] [place] [address]- Care Team Providers Care Manager Fire Name Role Phone Sanchez RICHTER, Genet Frias Primary Care Physician Encounter [facility] Date(s): 01/29/22 - 02/28/22 [facility] [address] [place] [address] Drive, [address] [place], [place] [address] Allergies, Adverse Reactions, Alerts Substance Reaction Severity [...] Comment: [03/01/2015] got flu shot at work, [facility] 3Result Comment: [01/13/2014] Received at work 4Admin Note: [employer] [facility] employer 5Admin Note: had at school 6Admin [...] Team Personnel Name: Genet Bradford NP Position: [facility] Outreach Member Role: PCP Address: Address: [address] [place] [address]- Name: Rasheed Hoang MD Position: [facility] Cardiology MD Member Role: Lifetime Consulting Physician Address: Address: [address] [place] [address] [place] [address]- Care Team Related Persons Name: MELODY RUSSELL Address: home [address] [place] [address] Name: BLAKE RUSSELL Address: home [address] [place] [address]
--- OUTSIDE RECORDS SUMMARY | 2022-12-22 15:56 | XMS_ITS | Continuity of Care Document ---
Author Name Unknown Organization [facility] Address [address] [place] [address] [address], [address] [place] [address]- Care Team Providers Care Pt Escort Name Role Phone Sanchez RICHTER, Genet Frias Primary Care Physician Encounter [facility] Date(s): 03/13/22 - 04/12/22 [facility] [address] [place] [address] Drive, [address] [place], [place] [address] Allergies, Adverse Reactions, Alerts No Known [...] Comment: [03/01/2015] got flu shot at work, [facility] 3Result Comment: [01/13/2014] Received at work 4Admin Note: [facility] [place] employer 5Admin Note: had at school 6Admin [...] Personnel Name: Sanchez RICHTER, Genet Frias Position: [facility] Outreach Member Role: PCP Address: Address: [address] [place] [address]- Name: Natalya HUNTLEY, Rasheed Edmond Position: [facility] Cardiology MD Member Role: Lifetime Consulting Physician Address: Address: [address] [place] [address] [place] [address]- Care Team Related Persons Name: MELODY RUSSELL Address: home [address] [place] [address] Name: BLAKE RUSSELL Address: [address] [place] [address]
--- OUTSIDE RECORDS SUMMARY | 2022-12-22 15:56 | XMS_ITS | Continuity of Care Document ---
Author Name Unknown Organization [facility] Address [address] [place], [place] [address]maksim king, [address] [place] [address]- Care Team Providers Care Home Health Care Worker Name Role Phone Sanchez RICHTER, Genet Frias Primary Care Physician Encounter [facility] Date(s): 01/15/22 - 02/14/22 [facility] [address] [place] [address] Drive, [address] [place], [place] [address] Allergies, Adverse Reactions, Alerts Substance [...] Comment: [01/13/2014] Received at work 4Admin Note: [employer] [facility] [place] employer 5Admin Note: [...] Personnel Name: Sanchez RICHTER, Genet Frias Position: [facility] Outreach Member Role: PCP Address: Address: [address] [place] [address]- Name: Rasheed Hoang MD Position: [facility] Cardiology MD Member Role: Lifetime Consulting Physician Address: Address: [address] [place] [address] & [facility] [place] [address]- Care Team Related Persons Name: MELODY RUSSELL Address: home [address] [place] [address] Name: BLAKE RUSSELL Address: home [address] [place] [address]
--- OUTSIDE RECORDS SUMMARY | 2022-12-22 15:56 | XMS_ITS | Continuity of Care Document ---
Author Name Unknown Organization [facility] Address [address] [place] [address]- Care Team Providers Care Casework Supervisor Name Role Phone Sanchez RICHTER, Genet Frias Primary Care Physician En[facility] Date(s): 02/27/22 - 03/20/[address] [address]- Encounter Diagnosis Dizziness and giddiness(Final) - Discharge Disposition: A-D/C Home Attending Physician: [...] Comment: [03/01/2015] got flu shot at work, [facility] [employer] [facility] 3Result Comment: [01/13/2014] Received at work 4Admin Note: [facility] [employer] [facility] [place] 5Admin Note: had [...] [place] Outreach Member Role: PCP Address: Address: [address] [place] [address]- [place] Name: Natalya HUNTLEY, Rasheed Edmond Position: [facility] Cardiology MD Member Role: Lifetime Consulting Physician Address: Address: [address] [place] [address] [place] [address]- Care Team Related Persons Name: MELODY RUSSELL Address: home [address] [place] [address] Name: BLAKE RUSSELL Address: home [address] [place] [address]
[2022-12-22 16:03] LABS: Appearance Urine Clear; Color Urine Yellow; Glucose Urine UA Negative (Negative); Leukocyte Esterase Urine Negative (Negative); Nitrite Urine Negative (Negative); PH 5.5 (5.0-9.0); Urine Blood Negative (Negative); Urine Ketones Negative (Negative); Urine Protein Negative (Neg-Trace)
[2022-12-22 16:04] LABS: UPreg QC Valid YES; Urine Pregnancy NEGATIVE (NEGATIVE)
[2022-12-22 16:04] LABS: Alanine Aminotransferase 24 U/L (0-31); Albumin Level 4.4 g/dL (3.5-5.0); Alkaline Phosphatase 51 U/L (39-117); Anion Gap 15 (12-20); Aspartate Amino Transferase 25 U/L (5-31); Bilirubin Total 0.5 mg/dL (0.0-1.0); Blood Urea Nitrogen 15 mg/dL (9-16); Calcium 9.8 mg/dL (8.4-10.2); Carbon Dioxide 21 mmol/L (22-29); Chloride 108 mmol/L (96-108); Creatinine Clr Calc Pharmacy 104.6; Estimated Glomerular Filt Rate > 60; Glucose Random 100 mg/dL (60-115); Lipase 34 U/L (8-78); Magnesium 2.2 mg/dL (1.6-2.6); Potassium 4.5 mmol/L (3.3-5.1); Sodium 139 mmol/L (135-145); Total Protein 7.8 g/dL (6.5-8.0)
[2022-12-22 16:07] LABS: Platelet Count 163 X10*3/uL (160-400)
[2022-12-22 16:08] LABS: Bacteria Urine Trace (None Seen); Hyaline Casts Urine 0-2 /LPF (0-2); RBC Urine 0-2 /HPF (0-2); Squamous Epithelial Cell Urine 0-2 /HPF (0-2); WBC Urine 0-5 /HPF (0-5)
[2022-12-22 16:12] LABS: Troponin-I High Sensitivity < 2.7 ng/L (<3.5-17.0)
[2022-12-22 16:25] LABS: SLIDE REVIEW VERIFIED
--- NOTE | 2022-12-22 16:49 | ED_ITS ---
HPI - General Adult General Chief complaint: General Medical Stated complaint: chest pain nausea dizzy Time Seen by Provider: 12/22/22 16:07 Source: patient, RN notes reviewed and old records reviewed Mode of arrival: ambulatory Limitations: no limitations History of Present Illness HPI narrative: Patient is a 57-year-old female with a PMH of concussion one year ago and covid- 19 one month ago presenting with episodes of lightheadedness, nausea, palpitations, upper back pain, and left upper chest pain that radiates to her arm over the past week. Endorses intermittent headaches since her concussion but no change from baseline at this time. Also endorses residual cough and fatigue since covid infection. Denies trauma, fever, chills, myalgias, confusion, vision changes, shortness of breath, cough, abdominal pain, vomiting, and urinary abnormalities. Related Data Home Medications Medication Instructions Recorded Confirmed doxepin 10 mg capsule 10 mg PO BEDTIME 06/16/21 estradiol 0.05 mg-norethindrone 0 patch transdermal 06/16/21 0.14 mg/24 hr semiwkly transderm patch (CombiPatch) levothyroxine 75 mcg tablet 75 mcg PO DAILY 06/16/21 (Synthroid) Previous Rx's Medication Instructions Recorded omeprazole 20 mg capsule,delayed 20 mg PO DAILY 90 days #90 caps 11/30/19 release levothyroxine 125 mcg tablet 62.5 mcg (1/2 x 125 mcg) PO DAILY 05/09/20 90 days #45 tabs meclizine 25 mg tablet 25 mg PO DAILY PRN dizziness #14 12/22/22 tabs Allergies Allergy/AdvReac Type Severity Reaction Status Date / Time No Known Allergies Allergy Verified 06/16/21 15:33 [No Known Allergies*] Review of Systems 2 Review of Systems: Constitutional : + fatigue, No Weight loss, No Fever, No Chills, No Malaise ENT/Mouth : No sore throat, No Rhinorrhea Eyes: No Eye Pain, No vision changes, No Swelling, No Redness Cardiovascular : + Chest Pain, + palpitations No SOB, No Dyspnea on Exertion, No Orthopnea, No Edema Respiratory : No Cough, No Sputum, No Wheezing Gastrointestinal : No Nausea, No Vomiting, No Diarrhea, No Constipation, No abdominal Pain, No Hematochezia, No Melena Genitourinary : No Dysuria, No Urinary Frequency, No Hematuria, Musculoskeletal : + left arm pain, + upper back pain, No Myalgias, No Joint Swelling Skin : No Skin Lesions, No rash Neuro : + dizziness, No Weakness, No Numbness, No Dizziness, No Headache All other systems reviewed and are negative Yes all other systems are reviewed and are negative [facility] Past Medical History Attestation statement: The following information was validated with the patient. Source: old records reviewed and nursing notes reviewed Medical History Calculus of kidney Surgical History History of repair of rectocele History of laparoscopic cholecystectomy Family History Family History Father Pacemaker Mother Unknown family medical history Maternal Grandfather CHF (congestive heart failure) CVD (cardiovascular disease) Maternal Grandmother CVD (cardiovascular disease) CHF (congestive heart failure) Brother No problems noted. Sister No problems noted. Son No problems noted. Son No problems noted. Son No problems noted. Social History Social History Smoked in Last 30 Days: No Use of substances other than those prescribed or required for medical reasons: No Advance Directives: No Advance Directives Information Provided: No Physical Exam ED Vital Signs: Vital Signs - 24 hr 12/22/22 15:04 12/22/22 16:52 12/22/22 17:36 Temperature 97.4 F 98.1 F Pulse Rate 65 62 58 Respiratory Rate 16 12 Blood Pressure 177/93 H 161/85 H 164/80 H Pulse Oximetry 98 99 Oxygen Delivery Method Room Air Room Air 12/22/22 17:36 12/22/22 17:37 Temperature Pulse Rate 60 50 Respiratory Rate Blood Pressure 164/98 H 173/95 H Pulse Oximetry Oxygen Delivery Method BMI result Body Mass Index 34.6 Noted to be hypertensive. Remainder of vital signs stable. Appearance: Alert.? Oriented X3.? No acute distress.? Head: Normocephalic, atraumatic, no step-offs or deformities Eyes: Pupils equal, round and reactive to light.? Neck: Normal inspection.? Neck supple.? CVS: Normal heart rate and rhythm.? Pulses normal. No carotid bruits b/l Respiratory: No respiratory distress.? Breath sounds normal.? Abdomen: Soft and nontender.? Skin: Skin warm and dry.? Normal skin color.? Normal skin turgor.? Extremities: No lower extremity edema.? No calf ttp. 5/5 strength to bilateral upper and lower extremities Back: No midline tenderness, no C-spine tenderness, full range of motion, no CVA tenderness bilaterally Neuro: Oriented X 3.? No motor deficit.? No sensory deficit. CN 2-12 intact. No gait abnormalities. Upper [id number], sgqk-[id number], steady tandem gait normal coordination. Negative Romberg and pronator NIH stroke scale 0 Course Reevaluation(s) Reevaluation #1: CBC with no acute findings . Chemistry unremarkable. Troponin negative, EKG nonischemic unlikely ACS. Will repeat 2nd troponin at this time. Coags within normal limits D-dimer added. Urine without infection. Chest x-ray unremarkable. Orthostatic vital signs pending. Time: 17:19 Reevaluation #2: Blood pressure lying down 164/80 with heart rate of 58, sitting 164/98 with heart rate of 59, standing up 173/95 with heart rate of 50 negative orthostatic vital signs. Repeat trop pending. Patient doesn't want meclizine. Time: 17:32 Reevaluation #3: D-dimer negative. Troponin negative x2. Patient feeling well. Neurological assessment remains nonfocal. Educated patient on diagnosis and treatment plan, answered all question, patient verbalizes understanding. At this time patient will be discharged home, advised to return with new or worsening symptoms. Educated on worrisome signs and symptoms and when to return. At this time I feel comfortable discharge home. Medications Administered Generic Name Dose Route Start Last Admin Trade Name Freq PRN Reason Stop Dose Admin Sodium Chloride 1,000 mls @ 999 mls/hr 12/22/22 17:30 12/22/22 17:36 Ns IV 12/22/22 18:30 Not Given .Q1H1M JADON Discontinued Medications Generic Name Dose Route Start Last Admin Trade Name Freq PRN Reason Stop Dose Admin Meclizine HCl 25 mg 12/22/22 17:20 12/22/22 17:36 Meclizine Hcl 25 Mg Tablet PO 12/22/22 17:21 Not Given ONCE ONE Medical Decision Making Medical Decision Making MDM Narrative: 57-year-old female with a PMH of concussion one year ago and covid-19 one month ago presenting with episodes of lightheadedness, nausea, palpitations, upper back pain, and left upper chest pain that radiates to her arm over the past week. PE benign Likely episodic vertigo vs. dehydration vs. orthostatic hypotension vs. arrhythmia vs. anxiety and musculoskeletal pain secondary to recent viral illness vs. overuse. Unlikely vertebrobasilar stroke, intracranial hemorrhage, carotid stenosis, aortic dissection, hypertensive urgency/emergency, traumatic injury, disc herniation, AAA, disection and epidural abscess. Plan labs, imaging, EKG, chest x-ray and a D-dimer Differential Diagnosis Differential Diagnoses: The differential diagnosis associated with the presentation includes Likely episodic vertigo vs. dehydration vs. orthostatic hypotension vs. arrhythmia vs. anxiety and musculoskeletal pain secondary to recent viral illness vs. overuse. Unlikely vertebrobasilar stroke, intracranial hemorrage, carotid stenosis, aortic dissection, traumatic injury, disc herniation, AAA, disection and epidural abscess. Admission/Observation Consideration of admission/observation: Escalation of care including admission/observation considered Unlikley Lab Data MDM Lab Attestation statement: I reviewed the patient's lab results. 12/22/22 15:37 12/22/22 15:37 Labs: Lab Results 12/22/22 12/22/22 12/22/22 Range/Units 15:37 15:52 17:41 WBC 5.5 (4.8-10.8) X10*3/uL RBC 4.85 (4.20-5.50) X10*6/uL Hgb 14.2 (12.0-16.0) g/dl Hct 42.2 (37.0-47.0) % MCV 87.0 (80.0-98.0) fL MCH 29.3 (27.0-33.0) pg MCHC 33.6 (31.0-35.0) g/dl RDW 12.7 (11.0-16.0) % Plt Count 163 (160-400) X10*3/uL MPV 11.5 (9.4-12.3) fL Immature Gran % (Auto) 0.2 (0.0-0.4) % Neut % (Auto) 69.2 (45-73) % Lymph % (Auto) 18.4 L (20-40) % Norman % (Auto) 9.6 (2-11) % Eos % (Auto) 2.1 (0-4) % Baso % (Auto) 0.5 (0-2) % Lymph # (Auto) 1.0 L (1.2-4.9) X10*3/uL Norman # (Auto) 0.5 (0.1-1.2) X10*3/uL Eos # (Auto) 0.1 (0.0-0.4) X10*3/uL Baso # (Auto) 0.0 (0.0-0.2) X10*3/uL Abs Immat Gran (auto) 0.01 (0.00-0.03) X10*3/uL Absolute Neuts (auto) 3.9 (2.0-8.3) x10*3/uL Absolute Nucleated RBC 0.000 (0.0-0.012) X10*3/uL Nucleated RBC % (auto) 0.0 (0.0-0.2) /100WBC Smear Tech's Comments VERIFIED PT 10.8 L (11.1-13.3) SEC INR 0.9 (0.9-1.1) D-Dimer High Sensitivty < 150 NG/ML Sodium 139 (135-145) mmol/L Potassium 4.5 (3.3-5.1) mmol/L Chloride 108 (96-108) mmol/L Carbon Dioxide 21 L (22-29) mmol/L Anion Gap 15 (12-20) BUN 15 (9-16) mg/dL Creatinine 0.76 (0.5-1.4) mg/dL Estim Creat Clear Calc 104.6 Estimated GFR > 60 Random Glucose 100 (60-115) mg/dL Calcium 9.8 (8.4-10.2) mg/dL Magnesium 2.2 (1.6-2.6) mg/dL Total Bilirubin 0.5 (0.0-1.0) mg/dL AST 25 (5-31) U/L ALT 24 (0-31) U/L Alkaline Phosphatase 51 (39-117) U/L Troponin I High Sens < 2.7 < 2.7 (<3.5-17.0) ng/L Total Protein 7.8 (6.5-8.0) g/dL Albumin 4.4 (3.5-5.0) g/dL Lipase 34 (8-78) U/L Urine Color Yellow Urine Appearance Clear Urine pH 5.5 (5.0-9.0) Ur Specific [place] 1.010 (1.005-1.025) Urine Protein Negative (Neg-Trace) mg/dL Urine Glucose (UA) Negative (Negative) mg/dL Urine Ketones Negative (Negative) mg/dL Urine Blood Negative (Negative) Urine Nitrite Negative (Negative) Ur Leukocyte Esterase Negative (Negative) Urine RBC 0-2 (0-2) /HPF Urine WBC 0-5 (0-5) /HPF Ur Squamous Epith Cells 0-2 (0-2) /HPF Urine Bacteria Trace (None Seen) Hyaline Casts 0-2 (0-2) /LPF Urine Test NEGATIVE (NEGATIVE) Independent Interpretation I performed an independent interpretation of an: EKG (Ventricular rate of 69, ME normal, QRS normal, QT/QTC normal. ST elevations or inversions concerning for acute ischemic) and Plain X-Ray (XR/XR chest 2V IMPRESSION: No active cardiopulmonary disease.) Radiology Impression Discussion of test interpretation with radiology: I have reviewed the radiologist's reading. Chronic Conditions Patient?s care impacted by: Other (obesity ) Critical Care Time Critical Care Time Critical Care Time: No Discharge Plan Discharge Clinical Impression: Dizziness, Arm pain, left, Chest pain Patient Disposition: Home, Self-Care Instructions: Vertigo (DC), Dizziness (ED), Arm Pain (ED) Additional Instructions: Take your medications as prescribed. If you were prescribed antibiotics today, it is important that you take your medication to their entirety, do not skip any doses, do not finish them early. Follow-up with your primary care provider this week. Return to the emergency department with new or worsening symptoms. Such as fevers, chills, chest pain, shortness of breath, nausea, vomiting, dizziness, headache, vision changes, lethargy In case of emergency call 911 Drink plenty of fluids XR/XR chest 2V IMPRESSION: No active cardiopulmonary disease. Your D-dimer was negative. Troponin negative x2 Feel better Prescriptions: New meclizine 25 mg tablet 25 mg PO DAILY PRN (Reason: dizziness) Qty: 14 0RF No Action omeprazole 20 mg capsule,delayed release(DR/EC) 20 mg PO DAILY 90 Days Qty: 90 3RF levothyroxine 125 mcg tablet 62.5 mcg PO DAILY 90 Days Qty: 45 3RF doxepin 10 mg capsule 10 mg PO BEDTIME levothyroxine [Synthroid] 75 mcg tablet 75 mcg PO DAILY CombiPatch 0.05-0.14 mg/24 hr patch semiweekly 0 patch transdermal Referrals: [facility] [place] [facility] [Provider Group] - 2 days Physician,Unknown J [Primary Care Provider] - 2 days Stand Alone Forms: Work/School Release
[2022-12-22 16:52] VITALS: BP 161/85; PULSE 62; RESP 12; TEMP 36.7; O2SAT 99
--- NOTE | 2022-12-22 17:32 | PC.NURSE ---
orthostatic vital signs obtained by PA, patient refusing meclizine at this time.
[2022-12-22 17:36] VITALS: BP 164/80; BP 164/98; PULSE 58; PULSE 60
[2022-12-22 17:37] VITALS: BP 173/95; PULSE 50
[2022-12-22 17:39] LABS: D Dimer High Sensitivity < 150 NG/ML
[2022-12-22 18:15] LABS: Troponin-I High Sensitivity < 2.7 ng/L (<3.5-17.0)
== END 2022-12-22 18:25 | disposition home or self-care (01) ==
PROVIDERS: Nurse Practitioner Family; Physician Assistant; Emergency Provider Internal Medicine
DX: R42 Dizziness and giddiness (principal); R07.9 Chest pain, unspecified; M79.602 Pain in left arm; Z79.899 Other long term (current) drug therapy
CPT/HCPCS: 36415; 71046; 80053; 81001; 81025; 83690; 83735; 84484; 85025; 85379; 85610; 93005; 99283; 99284

== ENCOUNTER 2023-11-12 13:48 | Outpatient (REF) | payer BC, SELFPAY ==
--- NOTE | ~2023-11-12 | MM_ITS ---
EXAMINATION: MM SCREENING DIGITAL BREAST TOMOSYNTHESIS, BILATERAL CLINICAL INFORMATION: Screening. Asymptomatic. COMPARISON: Mammography: Comparison is made with available priors TECHNIQUE: Digital breast mammography with tomosynthesis is performed in both the craniocaudal and mediolateral oblique views along with computer-aided detection (CAD). FINDINGS: The breasts are heterogeneously dense, which may obscure small masses (ACR BI-RADS breast composition Category c). There are no significant masses, abnormal calcifications, or other abnormalities. MM/MM tomosynthesis screening BI IMPRESSION: No mammographic evidence of malignancy. ASSESSMENT: BI-RADS BI-RADS 1 - Negative RECOMMENDATION: Routine annual mammography screening. 1 year F/U This examination should not preclude the clinical evaluation of a suspicious palpable abnormality. This patient's information was entered into a reminder system with a target due date for their next mammogram. Electronically signed by: Keren Alejandra DO 11/26/2023 09:25 AM EDT
== END 2023-11-12 13:49 | disposition home or self-care (01) ==
LOC: HO.MAMMO 13:48
PROVIDERS: PCP Family Medicine; Visit Provider Family Medicine
DX: Z12.31 Encounter for screening mammogram for malignant neoplasm of breast (principal)
CPT/HCPCS: 77063; 77067

== ENCOUNTER → 2023-11-12 14:00 | Outpatient (BNV) | payer BC, SELFPAY | PROVIDERS: PCP Family Medicine; Visit Provider Internal Medicine | DX: Z12.31 Encounter for screening mammogram for malignant neoplasm of breast (principal) | CPT/HCPCS: 77063; 77067 ==

== ENCOUNTER 2024-05-18 11:19 | Outpatient (REF) | payer BC, SELFPAY ==
--- NOTE | ~2024-05-18 | MM_ITS ---
EXAMINATION: MM DIAGNOSTIC DIGITAL BREAST TOMOSYNTHESIS, RIGHT Limited right breast ultrasound. CLINICAL INFORMATION: Right palpable lump upper outer quadrant. COMPARISON: Mammography: Priors on PACS. TECHNIQUE: Digital breast tomosynthesis is performed in both the craniocaudal and mediolateral oblique views along with computer-aided detection (CAD). Synthesized 2D images are generated from the tomosynthesis. FINDINGS: The breasts are heterogeneously dense, which may obscure small masses (ACR BI-RADS breast composition Category c). No suspicious masses calcifications or other abnormal findings. Targeted color Doppler ultrasound scanning in the upper outer quadrant area of patient's previously felt palpable lump demonstrates normal fibronodular breast tissue there are a few incidental normal-appearing lymph nodes at 10:00 12 cm from the nipple. MM/MM tomosynthesis diagnostic RT IMPRESSION: No mammographic or sonographic abnormality to account for the patient's right breast palpable lump. Recommend clinical evaluation and follow-up. ASSESSMENT: BI-RADS BI-RADS 1 - Negative RECOMMENDATION: 1 year F/U Results were provided to the patient at time of visit by the technologist. This patient's information was entered into a reminder system with a target due date for their next mammogram. Electronically signed by: Keren Alejandra DO 05/18/2024 12:46 PM EDT
== END 2024-05-18 11:20 | disposition home or self-care (01) ==
LOC: HO.MAMMO 11:19
PROVIDERS: PCP Family Medicine; Visit Provider Nurse Practitioner Adult Health
DX: N63.21 Unspecified lump in the left breast, upper outer quadrant (principal)
CPT/HCPCS: 76642; 77061; 77065

== ENCOUNTER → 2024-05-18 12:00 | Outpatient (BNV) | payer BC, SELFPAY | PROVIDERS: PCP Family Medicine; Visit Provider Internal Medicine | DX: N63.11 Unspecified lump in the right breast, upper outer quadrant (principal) | CPT/HCPCS: 76642; 77061; 77065 ==